=== PATIENT | female | born 1965 | race Caucasian/White ===

== ENCOUNTER → 2016-03-28 | Outpatient (CLI) | payer OTHER ==
[~2016-03-28] MED LIST: ADVAIR DISKUS 11 DSK INH; ATIVAN1 MG PO; CHANTIX0.5 MG PO; CYMBALTA30 M1 PO; CYMBALTA60 M1 PO; LEVEMIR10 ML SC; LOPRESSOR50 M1 PO; LOPRESSOR50 MG PO; METFORMIN500 MG PO; PRAVACHOL40 MG PO; PRILOSEC20 MG PO; REMERON30 MG PO; VITAMIN D1000 IU PO; VITAMIN E100 UNI2 PO
== END | disposition home or self-care (01) ==
LOC: RAD 15:37
DX: R22.9 Localized swelling, mass and lump, unspecified (principal)

== ENCOUNTER → 2016-05-22 | Outpatient (CLI) | payer OTHER | END | disposition home or self-care (01) | LOC: MRI 05-12 11:00 | DX: M47.896 Other spondylosis, lumbar region (principal); R22.9 Localized swelling, mass and lump, unspecified ==

== ENCOUNTER → 2016-07-07 | Outpatient (CLI) | payer OTHER ==
[~2016-07-07] VITALS: Ht 152.4 cm; Wt 77.1 kg
[2016-07-07 11:31] VITALS: BP 135/85
[2016-07-07 12:33] LABS: BILIRUBIN NEGATIVE (NEGATIVE); BLOOD 1+ (NEGATIVE); CLARITY SL CLOUDY (CLEAR); COLOR YELLOW (YELLOW); GLUCOSE NEGATIVE (NEGATIVE); KETONE NEGATIVE (NEGATIVE); LEUKO ESTERASE TRACE (NEGATIVE); NITRITE NEGATIVE (NEGATIVE); PH 5.5 (5.0-9.0); PROTEIN NEGATIVE (NEGATIVE); SPECIFIC GRAVITY <= 1.005 (1.005-1.030); UROBILINOGEN 0.2 E.U./dl (0.2-1.0)
[2016-07-07 12:42] LABS: BASO # 0.1 10*3/uL (0.0-0.1); EOS # 0.3 10*3/uL (0.0-0.4); EOS % 4.3 % (1.0-4.0); HEMATOCRIT 38.4 % (37.0-47.0); LYMPH # 2.8 10*3/uL (1.3-4.4); LYMPH % 41.1 % (27.0-41.0); MEAN CELL VOLUME 86.1 fl (81.0-99.0); MEAN CORPUSCULAR HGB 29.1 pg (27.0-31.0); MEAN CORPUSCULAR HGB CONC 33.9 g/dl (33.0-37.0); MEAN PLATELET VOLUME 9.7 fl (9.6-12.3); MONO # 0.6 10*3/uL (0.1-1.0); MONO % 8.9 % (3.0-9.0); NEUT % 44.3 % (47.0-73.0); PLATELET COUNT AUTOMATED 325 10*3/uL (130-400); RED BLOOD COUNT 4.46 10*6/uL (4.10-5.10); RED CELL DISTRI WIDTH 12.7 % (0-14.5); WHITE BLOOD COUNT 6.7 10*3/uL (4.8-10.8)
[2016-07-07 12:59] LABS: BACTERIA TRACE; EPITHELIAL CELLS 15-20; RBC 0-2 rbc/hpf (0-2)
[2016-07-07 13:05] LABS: BUN 13 mg/dl (7-24); CARBON DIOXIDE 30 mmol/L (21-32); CHLORIDE 104 mmol/L (98-107); EST GLOM FILT AFRICAN AMERICAN > 60 ml/min; GLUCOSE 58 mg/dL (65-99); POTASSIUM 3.6 mmol/L (3.5-5.1); SODIUM 141 mmol/L (136-145)
== END | disposition home or self-care (01) ==
LOC: SDC 06-30 11:00 → LAB 12:00 → SDC 07-10 02:46 → EDSTATUS 07-10 11:00 → SDC 07-10 11:00
PROVIDERS: Surgery
DX: D17.1 Benign lipomatous neoplasm of skin and subcutaneous tissue of trunk (principal); Z53.8 Procedure and treatment not carried out for other reasons

== ENCOUNTER → 2016-08-14 | Outpatient (CLI) | payer OTHER ==
[~2016-08-14] MED LIST changes: +DESVENLAFAXINE50 M4 PO; +GLIPIZIDE10 M2 PO; +LANSOPRAZOLE30 MG PO; +NOVAPLUS V0.09 MG/Ac INH
== END | disposition home or self-care (01) ==
LOC: MAMMO 12:41
DX: Z12.31 Encounter for screening mammogram for malignant neoplasm of breast (principal)

== ENCOUNTER → 2016-08-15 | Outpatient (CLI) | payer OTHER ==
[2016-08-15 10:41] LABS: BILIRUBIN NEGATIVE (NEGATIVE); BLOOD NEGATIVE (NEGATIVE); CLARITY SL CLOUDY (CLEAR); COLOR YELLOW (YELLOW); GLUCOSE NEGATIVE (NEGATIVE); KETONE NEGATIVE (NEGATIVE); LEUKO ESTERASE TRACE (NEGATIVE); NITRITE NEGATIVE (NEGATIVE); PH 5.5 (5.0-9.0); PROTEIN NEGATIVE (NEGATIVE); UROBILINOGEN 0.2 E.U./dl (0.2-1.0)
[2016-08-15 10:44] LABS: BASO # 0.1 10*3/uL (0.0-0.1); BASO % 0.9 % (0.0-1.0); EOS # 0.3 10*3/uL (0.0-0.4); EOS % 4.1 % (1.0-4.0); HEMATOCRIT 38.1 % (37.0-47.0); HEMOGLOBIN 12.7 g/dl (12.0-16.0); IG # 0.1 10*3/uL (0.0-0.1); LYMPH # 2.4 10*3/uL (1.3-4.4); LYMPH % 29.6 % (27.0-41.0); MEAN CELL VOLUME 85.4 fl (81.0-99.0); MEAN CORPUSCULAR HGB 28.5 pg (27.0-31.0); MEAN CORPUSCULAR HGB CONC 33.3 g/dl (33.0-37.0); MEAN PLATELET VOLUME 9.7 fl (9.6-12.3); MONO # 0.8 10*3/uL (0.1-1.0); MONO % 10.6 % (3.0-9.0); NEUT # 4.3 10*3/uL (2.3-7.9); NEUT % 54.2 % (47.0-73.0); PLATELET COUNT AUTOMATED 361 10*3/uL (130-400); RED BLOOD COUNT 4.46 10*6/uL (4.10-5.10); RED CELL DISTRI WIDTH 12.7 % (0-14.5)
[2016-08-15 10:59] LABS: BACTERIA TRACE; MUCOUS TRACE
[2016-08-15 11:04] LABS: BUN 10 mg/dl (7-24); CARBON DIOXIDE 28 mmol/L (21-32); CHLORIDE 104 mmol/L (98-107); EST GLOM FILT AFRICAN AMERICAN > 60 ml/min; GLUCOSE 130 mg/dL (65-99); POTASSIUM 4.1 mmol/L (3.5-5.1); SODIUM 143 mmol/L (136-145)
== END | disposition home or self-care (01) ==
LOC: LAB 09:36
PROVIDERS: Surgery
DX: D17.1 Benign lipomatous neoplasm of skin and subcutaneous tissue of trunk (principal)

== ENCOUNTER → 2016-08-21 | Day surgery (SDC) | payer OTHER ==
[~2016-08-21] VITALS: Ht 160 cm; Wt 74.8 kg
[~2016-08-21] MED LIST changes: +HYDROCODONE BIT1 T11 PO
--- NOTE | ~2016-08-21 | O ---
[place], [place] OPERATIVE NOTE [id number] UN[facility] #: [id number] ROOM: DOCTOR: AUGIE OLIVAREZ MD BIRTHDATE: [birth year] DOS: 08/21/2016 PREOPERATIVE DIAGNOSIS: Left lower back lipoma. POSTOPERATIVE DIAGNOSIS: Left lower back lipoma. PROCEDURE: Excision of left lower back lipoma. SURGEON: Augie Olivarez M.D. LOG STACKER OPERATOR: MS3. ANESTHESIA: MAC. INDICATIONS: This is a 51-year-old lady with symptomatic left lower back lipoma, who is here for the above-mentioned procedure. The procedure and its complications were explained to the patient in detail. Complications that were discussed included but were not limited to bleeding, infection, hematoma/seroma/abscess formation and prolonged pain. He agreed to proceed. DESCRIPTION OF PROCEDURE: After identifying the patient, the patient was brought to the operating suite and placed in a right lateral position. After IV sedation was administered, the parts were painted and draped in the usual sterile fashion and a time-out procedure was called. An incision was marked and local anesthesia (1% plain lidocaine) was infiltrated in the line of the incision and skin incision was made. It was deepened in layers and the lipoma was identified. It was excised and dissected away from surrounding structures with the help of electrocautery. Size of this lipoma was approximately 1 x 1 x 1 cm. It was sent for histopathological diagnosis. Thereafter, hemostasis was confirmed and saline was used for irrigation. The subcutaneous tissue was then approximated with the help of 3-0 Vicryl in an interrupted fashion and the skin edges were approximated with the help of 4-0 Vicryl in a subcuticular running fashion. Dressing was placed. The patient tolerated the procedure well and was brought back to the recovery room in stable fashion. There were no complications. Dr. Augie Olivarez, the attending surgeon, was present throughout the operating case. [place], [place] OPERATIVE NOTE NAME: ALEJANDRINA HANKSTERELL Venegas UNIT #: [id number] ROOM: DOCTOR: AUGIE OLIVAREZ MD BIRTHDATE: [birth year] Augie Olivarez MD CM:OPRECORD:OPERATIVE NOTE [id number] AUGIE OLIVAREZ MD 08/22/16 0136 interface
[2016-08-21 06:35] VITALS: BP 157/95
[2016-08-21 07:50] VITALS: BP 141/72
[2016-08-21 08:02] VITALS: BP 142/79
[2016-08-21 08:20] VITALS: BP 135/76
== END | disposition home or self-care (01) ==
LOC: SDC 08-15 09:30
DX: D17.1 Benign lipomatous neoplasm of skin and subcutaneous tissue of trunk (principal); I10 Essential (primary) hypertension; J45.909 Unspecified asthma, uncomplicated; Z87.01 Personal history of pneumonia (recurrent); E11.9 Type 2 diabetes mellitus without complications; K76.0 Fatty (change of) liver, not elsewhere classified; K21.9 Gastro-esophageal reflux disease without esophagitis; Z87.891 Personal history of nicotine dependence; E78.5 Hyperlipidemia, unspecified; Z79.899 Other long term (current) drug therapy; Z98.890 Other specified postprocedural states; M19.90 Unspecified osteoarthritis, unspecified site; F32.9 Major depressive disorder, single episode, unspecified; E66.9 Obesity, unspecified; Z88.8 Allergy status to other drugs, medicaments and biological substances

== ENCOUNTER 2016-10-21 | Emergency (ER) | payer OTHER ==
[~2016-10-21] VITALS: Ht 165.1 cm; Wt 93.0 kg
[~2016-10-21] MED LIST changes: +CENTRUM COMPLE1 EACH PO
[2016-10-21 00:45] LABS: BASO % 0.6 % (0.0-1.0); EOS % 0.6 % (1.0-4.0); HEMATOCRIT 37.8 % (37.0-47.0); HEMOGLOBIN 12.4 g/dl (12.0-16.0); LYMPH # 1.7 10*3/uL (1.3-4.4); LYMPH % 25.9 % (27.0-41.0); MEAN CELL VOLUME 84.8 fl (81.0-99.0); MEAN CORPUSCULAR HGB 27.8 pg (27.0-31.0); MEAN CORPUSCULAR HGB CONC 32.8 g/dl (33.0-37.0); MEAN PLATELET VOLUME 9.2 fl (9.6-12.3); MONO # 0.5 10*3/uL (0.1-1.0); MONO % 7.6 % (3.0-9.0); NEUT # 4.2 10*3/uL (2.3-7.9); PLATELET COUNT AUTOMATED 314 10*3/uL (130-400); RED BLOOD COUNT 4.46 10*6/uL (4.10-5.10); RED CELL DISTRI WIDTH 13.4 % (0-14.5); WHITE BLOOD COUNT 6.5 10*3/uL (4.8-10.8)
[2016-10-21 01:02] LABS: ALBUMIN 4.3 gm/dl (3.1-4.5); ALKALINE PHOSPHATASE 84 U/L (45-117); BILIRUBIN, TOTAL 0.2 mg/dl (0.2-1.0); BUN 9 mg/dl (7-24); CARBON DIOXIDE 26 mmol/L (21-32); CHLORIDE 105 mmol/L (98-107); EST GLOM FILT AFRICAN AMERICAN > 60 ml/min; GLUCOSE 146 mg/dL (65-99); POTASSIUM 4.1 mmol/L (3.5-5.1); SGOT/AST 46 IU/L (3-35); SGPT/ALT 41 U/L (12-78); SODIUM 139 mmol/L (136-145); TOTAL PROTEIN 7.7 gm/dL (6.4-8.2)
[2016-10-21 01:31] LABS: BILIRUBIN NEGATIVE (NEGATIVE); BLOOD NEGATIVE (NEGATIVE); CLARITY SL CLOUDY (CLEAR); COLOR YELLOW (YELLOW); GLUCOSE NEGATIVE (NEGATIVE); KETONE TRACE (NEGATIVE); LEUKO ESTERASE NEGATIVE (NEGATIVE); NITRITE NEGATIVE (NEGATIVE); PROTEIN 2+ (NEGATIVE); SPECIFIC GRAVITY >= 1.030 (1.005-1.030)
[2016-10-21 01:39] LABS: CALCIUM OXALATE CRYSTALS 2+; URINE AMPHETAMINES < 1000 (1000ng/ml); URINE BARBITURATES < 200 (200ng/ml); URINE COCAINE < 300 (300ng/ml)
[2016-10-21 01:41] LABS: URINE REFLEX COMMENT NO (NO)
[2016-10-21 06:03] VITALS: BP 134/81
== END 2016-10-21 09:52 | disposition short-term general hospital (02) ==
LOC: ED
PROVIDERS: Emergency Medicine Emergency Medical Services
DX: F31.9 Bipolar disorder, unspecified (principal); F23 Brief psychotic disorder; F41.9 Anxiety disorder, unspecified; Z79.899 Other long term (current) drug therapy; Z88.8 Allergy status to other drugs, medicaments and biological substances

== ENCOUNTER → 2017-05-04 | Outpatient (CLI) | payer OTHER | END | disposition home or self-care (01) | LOC: RAD 13:48 | DX: M25.532 Pain in left wrist (principal) ==

== ENCOUNTER 2019-08-15 15:56 | Inpatient (IN) | payer OTHER ==
[~2019-08-15] VITALS: Ht 160 cm; Wt 75.7 kg
[~2019-08-15 15:56] MED LIST changes: -LEVEMIR10 ML SC; +LEVEMIR100 UNIT/1 SC; -NOVAPLUS V0.09 MG/Ac INH; +PROVENTIL HFA6.7 GM INH
[2019-08-15 15:58] VITALS: BP 139/94
[2019-08-15 17:08] LABS: BASO # 0.1 10*3/uL (0.0-0.1); BASO % 0.8 % (0.0-1.0); EOS # 0.1 10*3/uL (0.0-0.4); EOS % 1.6 % (1.0-4.0); HEMATOCRIT 38.6 % (37.0-47.0); LYMPH # 3.2 10*3/uL (1.3-4.4); LYMPH % 36.3 % (27.0-41.0); MEAN CELL VOLUME 87.3 fl (81.0-99.0); MEAN CORPUSCULAR HGB 28.3 pg (27.0-31.0); MEAN CORPUSCULAR HGB CONC 32.4 g/dl (33.0-37.0); MEAN PLATELET VOLUME 8.9 fl (9.6-12.3); MONO # 0.9 10*3/uL (0.1-1.0); MONO % 10.8 % (3.0-9.0); NEUT # 4.3 10*3/uL (2.3-7.9); NEUT % 49.8 % (47.0-73.0); PLATELET COUNT AUTOMATED 438 10*3/uL (130-400); RED BLOOD COUNT 4.42 10*6/uL (4.10-5.10); RED CELL DISTRI WIDTH 13.4 % (0-14.5); WHITE BLOOD COUNT 8.7 10*3/uL (4.8-10.8)
[2019-08-15 17:19] LABS: ACT PARTIAL THROMBO TIME 25.7 SECONDS (20.0-32.1); INTERNATIONAL NORM RATIO 0.9 (2.0-3.5)
[2019-08-15 17:25] LABS: BILIRUBIN NEGATIVE (NEGATIVE); BLOOD NEGATIVE (NEGATIVE); CLARITY CLEAR (CLEAR); COLOR YELLOW (YELLOW); GLUCOSE NEGATIVE (NEGATIVE); KETONE NEGATIVE (NEGATIVE); SPECIFIC GRAVITY 1.005 (1.005-1.030)
[2019-08-15 17:25] LABS: ALBUMIN 4.3 gm/dl (3.1-4.5); ALKALINE PHOSPHATASE 70 U/L (45-117); BUN 8 mg/dl (7-24); CHLORIDE 105 mmol/L (98-107); CREATININE 0.73 mg/dL (0.55-1.02); LIPASE 344 U/L (73-393); POTASSIUM 3.9 mmol/L (3.5-5.1); SGOT/AST 7 IU/L (3-35); SGPT/ALT 22 U/L (12-78); SODIUM 135 mmol/L (136-145); TOTAL PROTEIN 7.8 gm/dL (6.4-8.2)
[2019-08-15 17:26] LABS: BACTERIA TRACE; LEUKO ESTERASE NEGATIVE (NEGATIVE); NITRITE NEGATIVE (NEGATIVE); UROBILINOGEN 0.2 E.U./dl (0.2-1.0)
[2019-08-15 17:27] LABS: TROPONIN I < 0.015 ng/ml (<0.045)
[2019-08-15 17:44] LABS: URINE AMPHETAMINES < 1000 (1000ng/ml); URINE BARBITURATES < 200 (200ng/ml); URINE BENZODIAZEPINES < 200 (200ng/ml); URINE CANNABINOIDS (THC) < 50 (50ng/ml); URINE COCAINE < 300 (300ng/ml); URINE METHADONE < 300 (300ng/ml); URINE OPIATES < 300 (300ng/ml)
[2019-08-15 18:04] LABS: URINE PHENCYCLIDINE < 25 (25ng/ml)
--- NOTE | 2019-08-15 19:14 | NUR ---
JACLYN ROYAL BACK UP SCAN COORDINATOR CALLED FOR INFORMATION ON PATIENT.
--- NOTE | 2019-08-15 19:28 | NUR ---
[facility] CALLED AND PT WILLING TO BE ADMITTED TO [facility].
[2019-08-15 21:12] VITALS: BP 123/76
--- NOTE | 2019-08-15 21:12 | NUR ---
AZIZA HANKS a 54 year old F admitted via wheel chair from the EMERGENCY ROOM as a voluntary admission. Arrived on unit at 2111. ALLERGIES: BUSPIRONE. Vital signs are: 97.3-88-18 123/76 SPO2 100%RA. The client signed the following forms with stated understanding: Authorization For The Release of Medical Information, Clothing List, Consent to Voluntary Admission and Hospitalization, Consent and Release Forms/Receipt of Rights, Acknowledgement of Advance Directive Information, Behavioral Health Consent Form, and Informed Consent of Medications. Admitted under the services of Dr. CORAL HENDERSON,[facility]. A search was conducted and hazardous articles were removed. Client was oriented to the unit. TD BARRAGAN
[2019-08-15] MEDS ORDERED: ASPIRIN CHEWABL81 MG PO (21:38)
[2019-08-15] MEDS ORDERED: ESCITALOPRAM OX20 MG PO (21:39)
[2019-08-15] MEDS ORDERED: LORATADINE-D 11 EACH PO (21:40)
[2019-08-15] MEDS ORDERED: MONTELUKAST SOD10 MG PO (21:40)
[2019-08-15] MEDS ORDERED: LISINOPRIL2.5 MG PO (21:41)
--- NOTE | 2019-08-15 21:45 | NUR ---
DR. WALKER MADE AWARE OF CONSULT FOR MEDICAL MANAGEMENT. HOME MEDS REVIEWED AND CONTINUED PER ORDERS. DR. WALKER ALSO MADE AWARE OF CRITICAL LACTIC ACID LEVEL 4.0. N.O. RECEIVED AND FOLLOWS: LABS FOR AM: HgBAIC, CMP, CBC WITH DIFF, TSH, B12, LACTIC ACID. ACCUCHECKS ACHS, SLIDING SCALE 1, ADA 2000 CALORIE DIET. START NS@60CC/HR. NO STOP DATE. LOVENOX 40MG SUBCUT DAILY DR. WALKER STATES HE WILL BE ON UNIT TOMORROW TO ASSESS PATIENT.
--- NOTE | 2019-08-15 22:06 | NUR ---
JACLYN PAIGE MADE AWARE OF PATIENT'S ADMISSION AND VOLUNTARY STATUS PER HER REQUEST.
--- NOTE | 2019-08-16 00:23 | NUR ---
24 GAUGE PLACED TO RIGHT AC, PLACED UNDER STERILE TECHNIQUE. SALINE LOCK ATTACHED, FLUSHED WITHOUT DIFFICULTY, PATIENT TOLERATED WELL.
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
--- NOTE | 2019-08-16 04:35 | NUR ---
NO FURTHER COMPLAINTS OF PAIN AND/OR ANXIETY NOTED, PT RESTING QUIETLY WITH EYES CLOSED. NO DISTRESS NOTED. PRN TYLENOL AND PRN ATIVAN EFFECTIVE AT THIS TIME.
--- NOTE | 2019-08-16 05:50 | NUR ---
PATIENT OBSERVED ON Q 15 MIN CHECKS TO HAVE SLEPT APPROX 3 HOURS UNINTERRUPTED. NO DISTRESS NOTED.
[2019-08-16 06:08] LABS: BASO # 0.1 10*3/uL (0.0-0.1); BASO % 0.8 % (0.0-1.0); EOS # 0.1 10*3/uL (0.0-0.4); EOS % 1.7 % (1.0-4.0); HEMATOCRIT 36.9 % (37.0-47.0); LYMPH # 2.8 10*3/uL (1.3-4.4); LYMPH % 41.8 % (27.0-41.0); MEAN CELL VOLUME 87.9 fl (81.0-99.0); MEAN CORPUSCULAR HGB 28.3 pg (27.0-31.0); MEAN CORPUSCULAR HGB CONC 32.2 g/dl (33.0-37.0); MEAN PLATELET VOLUME 9.1 fl (9.6-12.3); MONO # 0.7 10*3/uL (0.1-1.0); NEUT % 45.2 % (47.0-73.0); PLATELET COUNT AUTOMATED 381 10*3/uL (130-400); RED CELL DISTRI WIDTH 13.6 % (0-14.5); WHITE BLOOD COUNT 6.6 10*3/uL (4.8-10.8)
[2019-08-16 06:39] LABS: ALBUMIN 3.9 gm/dl (3.1-4.5); BUN 8 mg/dl (7-24); CHLORIDE 108 mmol/L (98-107); POTASSIUM 3.4 mmol/L (3.5-5.1); SGOT/AST 11 IU/L (3-35); SODIUM 139 mmol/L (136-145); TOTAL PROTEIN 7.1 gm/dL (6.4-8.2)
[2019-08-16 06:51] LABS: ALKALINE PHOSPHATASE 56 U/L (45-117); CHOLESTEROL 224 mg/dL (<200); CREATININE 0.76 mg/dL (0.55-1.02); HDL CHOLESTEROL 39 mg/dl (40-60); LDL CHOLESTEROL 122 mg/dL (9-159); SGPT/ALT 18 U/L (12-78); TRIGLYCERIDES 315 mg/dl (<150); VLDL CHOLESTEROL 63 mg/dL (6-40)
[2019-08-16 07:45] VITALS: BP 143/84
--- NOTE | 2019-08-16 07:54 | NUR ---
Patient eating breakfast in dining room with peers. Respirations easy and regular. Vital signs stable. No overt distress. ROSA HERNANDEZ
[2019-08-16 07:58] LABS: VITAMIN D, 25-HYDROXY 24.4 ng/mL (30-100)
--- NOTE | 2019-08-16 08:29 | NUR ---
SPEECH PATHOLOGY Nursing screen completed. There is no indication for speech pathology services at this time. This dept. will be available if future needs arise. ANTHONY MAGAÑA MS [facility]-ARTIST AGENT
--- NOTE | 2019-08-16 08:30 | NUR ---
Treatment Plan meeting was held with MAGNUS Marti, RN, AT, SUPERVISOR FRAME SAMPLE AND PATTERN-S and Speech Therapist Technician. Plan for discharge Next week. Pt. arrived to [facility] from Home and will return home at discharge.
--- NOTE | 2019-08-16 10:02 | NUR ---
on unit to see pt at this time, working with . Update given. Reviewed labs re: lactic acid/baseline. states ok to d/c IV fluids at this time. Witnessed by 2nd RN [email or web address].SEAN.
--- NOTE | 2019-08-16 10:33 | NUR ---
TELEHEALTH COMPLETED WITH DR MONCADA, NEW ORDERS RECEIVED.
--- NOTE | 2019-08-16 11:02 | NUR ---
Spoke with re: duplicate orders recieved for a second dose of Kdur 40mEq, TSH and B12 lab draws. Made aware pt already recieved a one time dose of Kdur 40mEq at 1012 this AM. Also made aware TSH and B12 levels were drawn this AM, results reviewed. states to cancel second dose of Kdur, cancel duplicate labs.
--- NOTE | 2019-08-16 11:16 | NUR ---
Pt given PRN Tylenol 650mg PO at this time per pt request for c/o right knee pain rated level 7/10, will monitor for effectiveness.
--- NOTE | 2019-08-16 11:27 | NUR ---
and residents on unit to see pt at this time.
--- NOTE | 2019-08-16 11:40 | NUR ---
[facility] per request of . Pt signed release of information allowing this RN to contact [facility] for information. Per Jaqueline RN, since 2012 pt has been prescribed Abilify, Remeron, Cymbalta, Pristiq. Most recently pt has been prescribed Ativan, Remeron and Lexapro. No antipsychotics since the Abilify in 2012. Jaqueline states pt had been on Klonopin but this was changed to Ativan in Apr 2018.
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
--- NOTE | 2019-08-16 11:56 | NUR ---
Contacted per pt request, pt requests orders for Saline nose spray for dry sinuses and Icy hot/Bengay for knee pain. states she will enter new orders.
[2019-08-16 12:07] LABS: RETICULOCYTE % 1.5 % (0.50-2.50)
[2019-08-16 12:35] LABS: IRON 55 ug/dL (50-170); TOTAL IRON BINDING CAPACITY 418 ug/dl (250-450)
--- NOTE | 2019-08-16 12:53 | NUR ---
INITIAL CLINICAL REVIEW FAXED TO [facility].
--- NOTE | 2019-08-16 15:09 | NUR ---
P- Pleasant demeanor, involuntary movements noted to face, eyes, mouth/tongue and BUE. Hyperverbal at times, one outburst of bizarre behavior in hallway. I- Orientation, mood and behaviors assessed. Assessed pt for SI/HI, hallucinations, paranoia and/or delusions. Medications administered as per physician's orders. Assistance with ADL care provided as needed. Encouraged pt to attend and participate in torrez milieu groups and activities. R- Pt is alert and oriented x4. Memory appears to be intact. Resps easy and even on room air. Mood appears stable, affect animated at times. Pt denies feeling sad, depressed, anxious or hopeless. Pt reports she wound up in the hospital due to "stressful situations at my apartment". Pt denies SI/HI, intent or plan. Pt denies hallucinations, paranoia and/or delusions. Pt noted with constant movements to face, eyes, mouth/tongue and BUE. is aware. Pt states "I've seen that commercial on TV for tardive dyskinesia and I think, 'wow! that's me'. Sometimes I don't even realize I'm doing it until I go the bathroom and see myself in the mirror when I wash my hands and I think to myself, I look like one of those fish I used to have as a kid". Pt hyperverbal at times. Pt complains frequently of right knee pain. Given Tylenol per orders. contacted re: pt's request for extra strength Tylenol, states she will look into it tomorrow. Pt had one outburts in the hallway this afternoon, pt standing in doorway to quiet room across from nurse's station and began yelling "1026! 1026! 1026! Football! Nayak-macias!". Pt then laughed and walked down the hallway. Pt otherwise very pleasant and cooperative, interacts appropriately with staff and peers. No distress noted. P- Plan to continue current treatment, continue to monitor mood and behaviors, provide appropriate reorientation, redirection and 1:1 as needed. Continue to encourage medication compliance as well as group attendance and participation.
--- NOTE | 2019-08-16 15:48 | NUR ---
GROUP B PT ATTENDED GROUP THERAPY AND PARTICIPATED BY COLORING AND LISTENING TO MUSIC. PT WAS QUIET AND ON TASK. PT EXHIBITED NO ADVERSE BEHAVIORS WHILE IN GROUP.
--- NOTE | 2019-08-16 17:31 | NUR ---
PRN Tylenol 650mg PO given at this time per pt request for c/o right knee pain. WIll monitor for effect.
--- NOTE | 2019-08-16 18:47 | NUR ---
Tylenol appears effective. No further complaints voiced at this time.
[2019-08-16 19:57] VITALS: BP 152/86
--- NOTE | 2019-08-16 20:10 | NUR ---
24 HR chart check completed.
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
--- NOTE | 2019-08-17 05:33 | NUR ---
PT SLEPT PAST 2215 WITH INTERMITTENT AWAKENINGS THROUGHOUT THE NIGHT. SLEPT APPX 3 1/2 HOURS
--- NOTE | 2019-08-17 05:35 | NUR ---
PT WAS UP TO THE BATHROOM X 4
--- NOTE | 2019-08-17 06:53 | NUR ---
AM BEDSIDE GLUCOSE 106
--- NOTE | 2019-08-17 07:42 | NUR ---
Patient eating breakfast in dining room with peers. Feeding self. Respirations easy and regular. Vital signs stable. No overt distress. ROSA HERNANDEZ PMCONSTANCE-CARLOS on unit to see pt at this time, update given.
[2019-08-17 07:49] VITALS: BP 135/84
--- NOTE | 2019-08-17 08:30 | NUR ---
Treatment Plan meeting was held this a.m. with Dr. Garcia via telephone, MAGNUS Marti RN, AT, MANUFACTURING SOFTWARE ENGINEER-S and Career Services Coordinator in attendance. Plan for discharge Next week with return home.
[2019-08-17 09:42] LABS: BUN 8 mg/dl (7-24); CHLORIDE 111 mmol/L (98-107); CREATININE 0.83 mg/dL (0.55-1.02); POTASSIUM 3.8 mmol/L (3.5-5.1); SODIUM 137 mmol/L (136-145)
--- NOTE | 2019-08-17 11:39 | NUR ---
AM GROUP PT ATTENDED MORNING GROUP THERAPY AND PARTICIPATED IN ALL ACITIVITES. PT EXHIBITED NO ADVERSE BEHAVIORS WHILE IN GROUP.
--- NOTE | 2019-08-17 12:05 | NUR ---
PRN Tylenol ES 1000mg PO given at this time per pt request for c/o right knee pain rated level 7/10. Will monitor for effect.
--- NOTE | 2019-08-17 13:37 | NUR ---
GROUP A/COPING SKILLS PT ATTENDED GROUP THERAPY AND PARTICIPATED FULLY IN THE GROUP DISCUSSION. PT HAD GOOD INSIGHT AND CONTRIBUTED TO THE CONVERSATION. PT EXPRESSED NO AGITATION OR ANXIETY DURING GROUP.
--- NOTE | 2019-08-17 13:40 | NUR ---
Tylenol moderately effective. Pt requesting Lidoderm patch. Lidoderm patch was ordered by MD today but scheduled to start tomorrow morning. Call placed to . states OK for this RN to reschedule Lidoderm patch to start now.
--- NOTE | 2019-08-17 15:53 | NUR ---
GROUP B/CRAFTS PT ATTENDED GROUP THERAPY AND PARTICIPATED IN ALL ACTIVITIES. PT WAS FOCUSED AND ENJOYED SINGING ALONG WITH THE MUSIC. PT EXHIBITED NO ADVERSE BEHAVIORS WHILE IN GROUP
--- NOTE | 2019-08-17 18:04 | NUR ---
No adverse moods or behaviors this shift. Pt is alert and oriented x4. Memory intact. Resps easy and even on room air. Speech is coherent, able to make needs known without difficulty. Involuntary facial movements continue. Pt denies feeling sad, depressed, anxious or hopeless. Pt denies SI/HI, intent or plan. Pt denies hallucinations, paranoia and/or delusions. No evidence of sensory disturbances noted. Pt is medication compliant without difficulty. Pt is pleasant, calm and cooperative. No distress noted. Plan to continue current treatment.
[2019-08-17 20:00] VITALS: BP 138/88
--- NOTE | 2019-08-17 20:17 | NUR ---
24 HR chart check completed.
--- NOTE | 2019-08-17 21:12 | NUR ---
P-HYPERVERBAL I-PROVIDE EMOTIONAL SUPPORT, ADMINISTER MEDS, MONITOR SLEEP R-ALERT & ORIENTED X 4. STATED SHE IS FEELING "GOOD, GOOD". SAT IN THE DINING ROOM WATCHING TV. STABLE & PLEASANT. NO PHYSICAL COMPLAINTS VOICED. AT SNACK COMPLIANT WITH MEDS. NO DELUSIONS. NO SENSORY DISTURBANCE. CONTINUES TO HAVE INVOLUNTARY FACIAL & NECK MOVEMENTS. RANDOMLY SHOUTS OUT WORDS. P-CONTINUE TO MONITOR
--- NOTE | 2019-08-18 05:42 | NUR ---
PT SLEPT PAST 2300 OF BROKEN SLEEP & BEING AWAKE FOR AN HOUR & A HALF. SLEPT APPX 5 1/2 HOURS
--- NOTE | 2019-08-18 06:46 | NUR ---
AM BEDSIDE GLUCOSE 121
[2019-08-18 07:59] VITALS: BP 123/79
--- NOTE | 2019-08-18 08:20 | NUR ---
Dr. Smallwood on floor to assess patient. Update provided.
--- NOTE | 2019-08-18 09:00 | NUR ---
Treatment Plan meeting was held this a.m. via telephone with Dr. Garcia, RN, AT, PAPER STRIPPER-S and Computational Mathematician. Plan for discharge Next week. Pt. will return Home at discharge.
--- NOTE | 2019-08-18 11:07 | NUR ---
Patient c/o left knee pain rating 7 out of 10 that is aching. Patient requesting and received at this time PRN PO tylenol per order. Will continue to monitor patient for effectiveness.
--- NOTE | 2019-08-18 11:39 | NUR ---
Shift chart check completed.
--- NOTE | 2019-08-18 11:51 | NUR ---
AM GROUP/RELAXATION PT ATTENDED MORNING GROUP THERAPY AND PARTICIPATED BY JOINING THE GROUP DISCUSSION. PT HAS GOOD INSIGHT AND CONTRIBUTED TO THE CONVERSATION. PT EXHIBITED NO ADVERSE BEHAVIORS WHILE IN GROUP
--- NOTE | 2019-08-18 12:07 | NUR ---
Patient states that the PRN Tylenol was effective. No further voiced complaints at this time. Will continue to monitor.
--- NOTE | 2019-08-18 13:05 | NUR ---
No adverse moods or behaviors noted this shift. Alert and oriented x3. Mood stable and pleasant with interaction. Denies SI/HI, hallucinations, or delusions. No s/s of interacting with intrernal stimuli. No paraoinoid or delusional thought process noted. No s/s of distress noted; resps even and unlabored on room air. Involuntary neck and facial movements remain. Attending and participating in group therapy. Eating and drinking adequately. Makes needs known. Pt states that she has left knee pain, brace is intact; see other documentation and EMAR for further detail on PRN given. Ambulates with a steady gait. Q15 minute checks maintained for safety. Patient continues to refuse skin assessment.
--- NOTE | 2019-08-18 13:29 | NUR ---
GROUP A/MABLE PT ATTENDED GROUP THERAPY AND PARTICIPATED IN ALL ACITIVITIES. PT EXHIBITED NO ANXIETY OR AGITATION WHILE IN GROUP. PT WAS FOCUSED AND SOCIALBLE.
--- NOTE | 2019-08-18 15:44 | NUR ---
GROUP B PT ATTENDED AFTERNOON GROUP THERAPY AND PARTICIPATED IN ALL ACTIVITIES. PT WAS JOVIAL, FOCUSED AND HELPFUL TO OTHER PEERS. PT EXHIBITED NO ADVERSE BEHAVIORS WHILE IN GROUP
--- NOTE | 2019-08-18 19:40 | NUR ---
24 HR chart check completed.
[2019-08-18 20:00] VITALS: BP 128/74
--- NOTE | 2019-08-18 22:33 | NUR ---
P-HYPERVERBAL, ANIMATED I-PROVIDE EMOTIONAL SUPPORT, ADMINISTER MEDS, MONITOR SLEEP R-ALERT & ORIENTED X 4. SPOKE WITH HERE SISTER CLIFF ON THE PHONE & STATED IT WAS A GOOD PHONE CALL. SAT IN THE DINING ROOM WATCHING TV & WAS VERY ANIMATED AT TIMES WITH LOUD LAUGHTER. STABLE & PLEASANT.ATE SNACK. COMPLIANT WITH MEDS. NO DELUSIONS. NO SENSORY DISTURBANCE. CONTINUES TO HAVE INVOLUNTARY FACIAL & NECK MOVEMENTS. RANDOMLY SHOUTS OUT WORDS. REQUESTED & MEDICATED WITH PRN TYLENOL EXTRA STRENGTH FOR C/O RIGHT LEG PAIN. RATED 7/10. P-CONTINUE TO MONITOR
--- NOTE | 2019-08-19 05:54 | NUR ---
PT SLEPT APPROX 2 1/2 HOURS OF BROKEN SLEEP
--- NOTE | 2019-08-19 06:22 | NUR ---
AM BEDSIDE GLUCOSE 112
[2019-08-19 08:00] VITALS: BP 126/72
--- NOTE | 2019-08-19 09:00 | NUR ---
Treatment Plan meeting was held this a.m. with MAGNUS Marti, RN, AT, HISTOLOGY AIDE-S and Production Aide. Plan for discharge Next Week. Pt. will retur home at discharge.
--- NOTE | 2019-08-19 10:11 | NUR ---
PRN Tylenol ES 1000mg PO given at this time per pt request for c/o right knee pain rated level "6 and a half" out of 10. Will monitor for effect.
--- NOTE | 2019-08-19 11:30 | NUR ---
Pt states Tylenol effective in easing pain. Rates pain a 4/10 at this time.
--- NOTE | 2019-08-19 11:44 | NUR ---
AM GROUP PT ATTENDED MORNING GROUP THERAPY AND PARTICIPATED IN ALL ACITIVITIES.PT EXHIBITED NO ADVERSE BEHAVIORS WHILE IN GROUP.
--- NOTE | 2019-08-19 13:42 | NUR ---
GROUP B PT WAS PRESENT FOR GROUP THERAPY AND PARTICIPATED IN ALL ACITIVITIES. PT WAS HYPERVERBAL THE ENTIRE TIME. PT EXHIBITED NO ADVERSE BEHAVIORS WHILE IN GROUP.
--- NOTE | 2019-08-19 14:45 | NUR ---
Pt has been hyperverbal today and intrusive toward other pts. Pt was pleasant and appropriate in content during conversation with this administrative underwriter.
--- NOTE | 2019-08-19 15:05 | NUR ---
P- Hyperverbal, intrusive with other peer/staff interactions, animated affect noted at times, pt c/o increased anxiety and difficulty sleeping in the evening hours. I- Orientation, mood and behaviors assessed. Assessed pt for SI/HI, hallucinations, paranoia and/or delusions. Medications administered as per physician's orders. Medication education provided. Encouraged pt to attend and participate in torrez milieu groups and activities. R- Pt is alert and oriented x4. Memory intact. Resps easy and even on room air. Mood stable, affect animated at times. Pt is hyperverbal. Intrusive into other staff and peer interactions. Pt denies feeling sad or depressed. Pt reports feeling anxious at night which leads to poor sleep. Discussed new order for Ambien at HS to aide with sleep. Pt states "How many miligrams?" Advised pt ordered Ambien 5mg for tonight. Pt states "OK. Well if that doesn't work then they can go to 10mg and 10mg ALWAYS works!" Pt denies SI/HI, intent or plan. Pt denies hallucinations, no response to internal stimuli noted. No paranoia or delusions noted. Decreased involuntary movements noted to face/lips and BUE. Pt states "Yeah! It's much better. I don't look like a fish in a fish tank anymore!" Pt is medication compliant without difficulty. No aggressive behaviors. Independent with ADL care. No distress noted. P- Plan to continue current treatment, continue to monitor mood and behaviors, provide appropriate reorientation, redirection and 1:1 as needed. Continue to encourage medication compliance as well as group attendance and participation.
--- NOTE | 2019-08-19 15:35 | NUR ---
Shift chart check completed.
--- NOTE | 2019-08-19 15:48 | NUR ---
GROUP B / BETZAIDA PT ATTENDED GROUP THERAPY AND PLAYED ByteShieldTZEE. PT TALKED NONSTOP THE ENTIRE TIME AND NO ONE COULD GET A WORD IN EDGEWISE. EVEN WHEN ASKED TO PAUSE SO THAT SOMEONE ELSE COULD SPEAK, PT WAS UNABLE TO DO SO.
[2019-08-19 20:00] VITALS: BP 156/79
--- NOTE | 2019-08-19 20:50 | NUR ---
Medicated with Tylenol po prn as per doctor's order for c/o pain in rt knee rating 09/15. Will monitor effectiveness.
--- NOTE | 2019-08-19 22:26 | NUR ---
Patient alert and oriented x4. No memory deficits noted. Mood calm,cooperative and slightly hyperverbal at times but easily redirected. Patient intrusive with other patients' care. Occasional involuntary facial movements noted. Patient denies SI,delusions or hallucinations. No s/s of any responding to internal stimuli noted at this time. Patient compliant with HS medications without any difficulty. Provided emotional support. Redirected when needed and patient receptive. Plan to continue to encourage medication compliance. Also continue to offer emotional support and redirect when needed/appropriate. Will continue to monitor moods/behaviors. Q 15 minute safety checks continued and maintained. See [facility] flowsheet for further documentation.
--- NOTE | 2019-08-20 00:12 | NUR ---
24 HR chart check completed.
--- NOTE | 2019-08-20 05:05 | NUR ---
Patient slept approx. 1.5 hours throughout shift. Q 15 minute safety checks continued and maintained.
[2019-08-20 07:53] VITALS: BP 132/81
--- NOTE | 2019-08-20 09:44 | NUR ---
PATIENT C/O ACHING RIGHT KNEE PAIN RATING 8 OUT OF 10. REQUESTING AND RECEIVED AT THIS TIME PRN PO TYLENOL. WILL CONTINUE TO MONITOR FOR EFFECTIVENESS.
--- NOTE | 2019-08-20 10:44 | NUR ---
PT STATES PRN TYLENOL WAS EFFECTIVE. NO FURTHER VOICED COMPLAINTS AT THIS TIME.
--- NOTE | 2019-08-20 17:48 | NUR ---
P- Hyperverbal. Preoccupied with medications and diabetes. Argumentative with staff and other patients. Animated noises at times. Involuntary face, neck, and hand movements present. I- Assess mood, orientation, SI/HI, hallucinations, delusions, or pain. 1:1 therapeutic interaction with emotional support and ventilation of feelings provided. Provide redirection with argumentative behavior. Encourage to utilize lower stimuli environments when upset with others. Educate and encourage to use coping techniques. Provide meds on time with education on each. Education provided on diabetic management and diet. R- Alert and oriented x3. Patient states mood is "good" in an animated voice. Denies SI/HI, hallucinations, or delusions. No s/s of interacting with internal stimuli. No s/s of delusional thought process noted. No s/s of distress ntoed; resps even and unlabored on room air. Patient states that her right knee was hurting; see other documentation for further details. Patient sitting in dining room most of the day with other patients, talking over other patients during group, and making animated noises. Pt was found verbally arguing with another patient due to her talking over the movie during group. Pt refused to leave the dining room but did stop the argument. 1:1 interaction and redirection was ineffective, pt remained mute when telling about coping skills. Pt preoccupied with medications and diabetes. Pt stated that she did not have sugar on her lunch tray to bring up her sugar; education provided on the meats, starches, and carbohydrates that were on her place; pt stated "No, I ordered a pudding for the sugar"; educated that all our food is sugar free for diabetic patients. Pt voices needs often and makes known. Intrussive with other peoples conversations. Eating and drinking adequately. Medication compliant. Ambulates with a steady gait. P- Continue with redirection, 1:1 interaction, and coping skills. Encourage to utilize low stimuli environment. Provide meds on time with education on each. Educate frequently with medications and diabetes. Q15 minute checks maitained for safety.
--- NOTE | 2019-08-20 18:08 | NUR ---
Shift chart check completed.
[2019-08-20 20:00] VITALS: BP 141/75
--- NOTE | 2019-08-20 20:59 | NUR ---
Medicated with Tylenol po prn for c/o bilat.leg pain rating 7/10. Will monitor effectiveness.
--- NOTE | 2019-08-20 22:09 | NUR ---
Patient alert and oriented x4. No memory deficits noted. Mood calm,cooperative and slightly hyperverbal at times but easily redirected. Patient intrusive with other patients' care. Occasional involuntary facial movements noted. Patient denies SI,delusions or hallucinations. No s/s of any responding to internal stimuli noted at this time. Patient compliant with HS medications without any difficulty. Provided emotional support. Redirected when needed and patient receptive. Plan to continue to encourage medication compliance. Also continue to offer emotional support and redirect when needed/appropriate. Will continue to monitor moods/behaviors. Q 15 minute safety checks continued and maintained. See [facility] flowsheet for further documentation.
--- NOTE | 2019-08-21 00:23 | NUR ---
24 HR chart check completed.
--- NOTE | 2019-08-21 05:59 | NUR ---
Patient slept approx. 6 hours throughout shift. Q 15 minute safety checks continued and maintained.
[2019-08-21 08:00] VITALS: BP 140/80
--- NOTE | 2019-08-21 13:25 | NUR ---
DR WALKER IN TO ASSESS PT. PT C/O PAIN TO DR WALKER AND GAVE NEW ORDERS FOR ULTRAM 50 MG NOW AND BID PRN. PT PREVIOUSLY WALKING DOWN THE GRIJALVA FROM HER ROOM TO THE DINNING AREA. PT C/O RIGHT KNEE PAIN AND STATED IT WAS GREATER THAN 10 OUT OF 10. EXPLAINED TO PT SOMETIMES WHEN WALKING IT WILL HELP LOOSEN THE JOINT AND MAKE THE PAIN LESS. ALSO EXPLAINED TO PT IF SHE WOULD COMPLETE SOME LEG AND KNEE EXERCISES IN BED THAT IT WILL HELP LOOSEN THE JOINT PRIOR TO GETTING OUT OF BED. BY THE TIME THE PT GOT TO THE DINNING AREA PT STATED HER PAIN WAS DOWN TO A 7 WITH AMBULATION. THIS NURSE GOT THE PT A HEATED BLANKET TO WRAP AROUND THE KNEE AND PT STATED THAT WAS VERY HELPFUL. WILL CONTINUE TO MONITOR PT.
[2019-08-21 16:49] VITALS: BP 151/92
--- NOTE | 2019-08-21 17:43 | NUR ---
PT STARTED AN ARGUMENT WITH A PEER WHILE IN THE DINNING AREA. PT WAS REMOVED FROM THE AREA. tHE PT ASKED TO SPEAK TO THIS NURSE AND THIS NURSE STATED TO GO TO THE QUIET ROOM AND I WILL SPEAK TO HER. PT THEN CONTINUED ON TO HER ROOM TO GET HER KNEE BRACE. PT WAS WALKING DOWN THE GRIJALVA SHE TOOK A CUP OF ICE AND THREW IT ON THE FLOOR IN THE MIDDLE OF THE GRIJALVA BY HER ROOM. PRIOR TO LEAVING THE DINNING AREA THE PT CRUMBLED CAKE UP ONTO THE FLOOR UNDER THE TABLE.
--- NOTE | 2019-08-21 19:55 | NUR ---
24 HR chart check completed.
[2019-08-21 20:00] VITALS: BP 146/68
--- NOTE | 2019-08-21 21:34 | NUR ---
P-HYPERVERBAL, ANIMATED, ATTENTION SEEKING, PREOCCUPIED WITH MEDS & KNEE I-PROVIDE EMOTIONAL SUPPORT, ADMINISTER MEDS, MONITOR SLEEP R-ALERT & ORIENTED X 3. ATTENTION SEEKING BEHAVIORS & VERY ANIMATED, LOUD LAUGHTER & FREQUENT LOUD NOISES. REQUIRED REDIRECTION SEVERAL TIMES TO QUIET DOWN WHILE IN THE DINING ROOM SHE WAS BEING INTRUSIVE & OVER RIDING THE SOUND ON THE TV. PREOCCUPIED WITH MEDICATIONS & RIGHT KNEE PAIN. ATE SNACK. COMPLIANT WITH MEDS. CONTINUES TO HAVE INVOLUNTARY FACIAL & NECK MOVEMENTS. P-CONTINUE TO MONITOR
--- NOTE | 2019-08-22 05:33 | NUR ---
PT HAS BEEN UP & DOWN TO THE BATHROOM SEVERAL TIMES. SEVERAL CUPS OF WATER WERE FOUND IN HER ROOM & DRAWERS. SHE DID NOT FALL ASLEEP UNTIL 0300.
--- NOTE | 2019-08-22 06:15 | NUR ---
AM BEDSIDE GLUCOSE 115
[2019-08-22 07:33] VITALS: BP 115/82
--- NOTE | 2019-08-22 10:30 | NUR ---
Treatment Plan meeting was held this a.m. with Dr. Garcia, MAGNUS Marti, RN, AT, DAIRY HUSBANDMAN-S and Performance Reporter. Plan for discharge Thursday. Pt. will return home with Follow up arranged.
--- NOTE | 2019-08-22 11:39 | NUR ---
AM GROUP/EXERCISE AND REMINISCING PT ATTENDED GROUP THERAPY AND PARTICIPATED IN ALL ACTIVITIES. PT WAS HYPERVERBAL AND HAS NO SENSE OF SOCIAL ETIQUETTE, CUTTING OTHERS OFF OR YELLING OVER THEM.
--- NOTE | 2019-08-22 14:10 | NUR ---
GROUP A PT ATTENDED GROUP THERAPY AND WAS HYPERVERBAL. PT WAS "VENTING" AND WAS PERMITTED TIME TO DO SO. PT WAS REDIRECTABLE
--- NOTE | 2019-08-22 16:46 | NUR ---
DR GARCÍA ON UNIT TO ASSESS PT
--- NOTE | 2019-08-22 18:16 | NUR ---
NO MOODS OR BEHAVIORS NOTED. Q15 MINUTE SAFETY CHECKS MAINTAINED. SEE [facility] FLOWSHEET FOR SPECIFIC MONITORING.
[2019-08-22 19:08] VITALS: BP 145/80
--- NOTE | 2019-08-22 19:32 | NUR ---
24 HR chart check completed.
--- NOTE | 2019-08-22 20:53 | NUR ---
P-HYPERVERBAL, ANIMATED I-PROVIDE EMOTIONAL SUPPORT, ADMINISTER MEDS, MONITOR SLEEP R-ALERT & ORIENTED X 4. VERY ANIMATED. FREQUENT LOUD NOISES. REQUIRES REDIRECTION & IS MINIMALLY RECEPTIVE. ATE SNACK. COMPLIANT WITH MEDS. CONTINUES TO HAVE INVOLUNTARY FACIAL & NECK MOVEMENTS. P-CONTINUE TO MONITOR
--- NOTE | 2019-08-23 05:04 | NUR ---
PT HAS BEEN RESTLESS THROUGHOUT THE NIGHT. SLEPT PAST 0130 WITH BROKEN SLEEP & SEVERAL TRIPS TO THE BATHROOM. PT STATED, "I'M GETTING MY REST. I'M NOT DOING ANYTHING DIFFERENT THAN WHAT I DO AT HOME. I HAVE TO GET UP & GO SO I DONT WET THE BED"
--- NOTE | 2019-08-23 06:43 | NUR ---
AM BEDSIDE GLUCOSE 112
--- NOTE | 2019-08-23 06:44 | NUR ---
PT APPEARS DROWSY THIS AM. C/O FEELING TIRED. ALERT & ORIENTED X 3. TEMP.99.0 BEDSIDE GLUCOSE 130. SLIGHTLY DIAPHORETIC. DENIES ANY COMPLAINTS EXCEPT FEELING TIRED. COAGULATING DRYING SUPERVISOR EQUAL BILATERALLY. TOOK AM MEDICATIONS.
--- NOTE | 2019-08-23 07:28 | NUR ---
Patient resting quietly with no c/o discomfort. Respirations easy and regular. Vital signs stable. No overt distress. GIVENS,KHUSHI
[2019-08-23 07:45] VITALS: BP 142/80
--- NOTE | 2019-08-23 09:00 | NUR ---
Treatment Plan meeting was held this a.m. with MAGNUS Marti, RN,AT, NOE-S and Adoption Agent. Plan for discharge Thursday with return home.
--- NOTE | 2019-08-23 09:15 | NUR ---
Physical Therapy evaluation completed on [facility] with full evaluation to follow. Recommend physical therapy per plan of care and Home with f/u Ortho MD assessment of R knee and outpatient PT as appropriate upon discharge. Thank you for this referral. Cher Herrera PT
--- NOTE | 2019-08-23 11:40 | NUR ---
AM GROUP/PUZZLES PT ATTENDED MORNING GROUP THERAPY AND WORKED ON A PUZZLE. PT IS STILL HYPERVERBAL, OTHERWISE, PT EXHIBITED NO ADVERSE BEHAVIORS WHILE IN GROUP.
--- NOTE | 2019-08-23 14:02 | NUR ---
GROUP A PT ATTENDED THAT LATTER HALF OF GROUP. PT IS HYPERVERBAL BUT SPEAKS IN CONTEXT AND IS RELAVENT. PT EXHIBITED NO ADVERSE BEHAVIORS WHILE IN GROUP.
--- NOTE | 2019-08-23 14:55 | NUR ---
Pt hyperverbal but appropriate in content of conversation. Pt asked for clarification of pain medication for her knee. Explained that this life underwriter would speak to nursing. After speaking with RNs, returned to pt and relayed the information about the Ultram order, continuation/discontinuation of such, and possibility of ibuprofen order. Pt voiced understanding. Pt then spoke of discharging to home and her two cats.
--- NOTE | 2019-08-23 15:31 | NUR ---
PEER TO PEER SET UP FOR JORDAN ANDRADE FOR AUGUST 23 BETWEEN 8:30 AND 9:00 AM. SAIMA HANKS INFORMED.
--- NOTE | 2019-08-23 15:40 | NUR ---
GROUP B PT ATTENDED GROUP THERAPY AND PARTICIPATED IN ALL ACTIVITIES. PT IS STILL HYPERVERBAL. NO ADVERSE BEHAVIORS OTHERWISE.
[2019-08-23 19:02] VITALS: BP 150/83
--- NOTE | 2019-08-23 20:06 | NUR ---
24 HR chart check completed.
--- NOTE | 2019-08-23 21:21 | NUR ---
P-HYPERVERBAL, ANIMATED I-REDIRECT, ADMINISTER MEDS, MONITOR SLEEP R-ALERT & ORIENTED X 4. VERY ANIMATED. FREQUENT LOUD NOISES. REQUIRES REDIRECTION & IS MINIMALLY RECEPTIVE. ATE SNACK. COMPLIANT WITH MEDS. P-CONTINUE TO MONITOR
--- NOTE | 2019-08-24 05:29 | NUR ---
PT HAS SLEPT PAST 013
--- NOTE | 2019-08-24 06:27 | NUR ---
AM BEDSIDE GLUCOSE 118
[2019-08-24 07:37] VITALS: BP 134/84
--- NOTE | 2019-08-24 09:00 | NUR ---
Treatment Plan meeting was held this a.m. with MAGNUS Marti RN AT, [facility] and Storage Wharfage Clerk. Plan for discharge over the next few days. Pt. is not psychiatrically stable to discharge home per Dr. Garcia.
--- NOTE | 2019-08-24 11:42 | NUR ---
AM GROUP PT ATTENDED MORNING GROUP THERAPY AND PARTICIPATED IN ALL ACTIVITIES. PT WAS HYPERVERBAL BUT WAS ABLE TO LOWER HER VOICE WHEN REMINDED AND WAS LESS INTRUSIVE OF OTHERS COMMENTS.
--- NOTE | 2019-08-24 11:58 | NUR ---
Pt continues to be hyperverbal but with a lessened intensity this AM. Pt also voices flight of ideas as she moves from topic to topic. This automotive service writer did observe pt's ability to control her voice after being asked to do so by the early childhood education coordinator. Pt did interact appropriately with another peer who was present.
--- NOTE | 2019-08-24 13:00 | NUR ---
DR. WALL ON UNIT TO ASSESS PATIENT.
--- NOTE | 2019-08-24 13:43 | NUR ---
P: HYPERVERBAL, AMINATED, INTRUSIVE AND DISRUPTIVE WITH OTHER PATIENTS. I: ONE ON ONE, REDIRECTION AND ENCOURGED TO PARTICPATE IN GROUP SESSION. R: EFFECTIVE. PATIENT IS ALERT TO PERSON, PLACE, TIME AND SITUATION, ABLE TO VOICE NEEDS. MOOD IS IRRITABLE AT TIMES. DENIES ANY HALLUCIANTIONS, DELUSIONS, HI/SI OR PAIN. INDEPENDENT WITH ACTIVITIES OF DAILY LIVING, CONTINENT OF BOWEL AND BLADDER. SET UP FOR MEALS, INTAKES ARE GOOD WITH ADEQUATE FLUIDS. MEDICATION COMPLAINT WITH EDUCATION PROVIDED. Q 125 MINUTE SAFETY CHECKS MAINTAINED. PARTICIPATED IN AFTERNOON GROUP AND INTERACTIVE WITH STAFF AND OTHER PATIENTS. P: CONTINUE TO MONITOR FOR MEDICAITON COMPLIANCE, MOOD AND IRRITABILITY. CONTINUE TO PROVIDE ONE ON ONE AND REDIRECTION NEEDED.
--- NOTE | 2019-08-24 14:09 | NUR ---
GROUP A PT WAS PRESENT FOR GROUP THERAPY BUT DID NOT PARTICIPATE SHE WAS STILL EATING LUNCH. PT WAS HYPERVERBAL AND INTRUSIVE. PT NEEDS CONSTANT REMINDERS TO LOWER HER VOICE AND TO LET SOMEONE ELSE SPEAK
--- NOTE | 2019-08-24 15:58 | NUR ---
GROUP B PT WAS PRESENT FOR GROUP THERAPY AND WATCHED A MOVIE. PT ATTEMPTED CONVERSATION SEVERAL TIMES BUT WAS ENCOURAGED TO WATCH THE MOVIE. PT WAS ACTUALLY QUIET WHILE ENGAGED IN THE MOVIE.
--- NOTE | 2019-08-24 16:44 | NUR ---
Shift chart check completed.
[2019-08-24 19:42] VITALS: BP 136/88
--- NOTE | 2019-08-24 22:14 | NUR ---
PT HAS BEEN INTRUSIVE, DISRUPTIVE, ARGUMENTATIVE, DEMANDING, LABILE. PT ARGUING WITH STAFF OVER MEDICATIONS, REFUSED TOFRANIL. STATES "I DON'T KNOW WHY DOCTORS DO THIS. I CAN'T TAKE THAT. I TAKE AMBIEN". PT DISTURBING ROOMMATE AT BEDTIME TALKING TO HER WHILE SHE IS ATTEMPTING TO SLEEP. PT ALSO MAKING LOUD SIGHING NOISES DISTURBING ROOMMATE. PT DEMANDING PRN BIOTENE, PT EDUCATED THAT IT IS NOT AVAILABLE YET DUE TO LAST ADMINISTRATION AT 1544. PT STATES "OH I FORGOT ABOUT THAT. I CAN REMEMBER A TIME WHEN NURSES DID THEIR JOBS". PT THEN STATING "I'M NOT TRYING TO ARGUE WITH ANYONE. IT IS THE LATUDA MAKING ME SAY THE WRONG THING". PATIENT EDUCATED ON TREATMENT PLAN AND MEDICATIONS. PT'S ROOM CHANGED TO ALLOW ROOMMATE TO REST. PT CONTINUES TO GET UP AND DOWN OUT OF BED. WILL CONTINUE TO ENCOURAGE PT TO REST, PROVIDE WITH LOW STIMULATION, AND MONITOR Q15 MIN FOR SAFETY.
--- NOTE | 2019-08-25 05:56 | NUR ---
PT SLEPT TWO INTERRUPTED HOURS T/O NIGHT.
[2019-08-25 08:00] VITALS: BP 140/80
--- NOTE | 2019-08-25 08:30 | NUR ---
Treatment Plan meeting was held this a.m. via telephone with Dr. Garcia, RN, AT, PLASTIC CNC MACHINE OPERATOR-S and Plier Worker. Plan for discharge Possible Thursday. Dr. Garcia continues to adjust medications and Pt. is unstable at this time for discharge Home.
--- NOTE | 2019-08-25 09:05 | NUR ---
updated on pt progress and rounded via telehealth. Medication orders updated per MD orders from . Read back and verified.
--- NOTE | 2019-08-25 10:50 | NUR ---
IP STAY DENIAL OVERTURNED AND STAY APPROVED AFTER PEER TO PEER.
--- NOTE | 2019-08-25 11:51 | NUR ---
Individual time spent with pt this AM. Pt spoke about the history of [place] and shared that her father was a history buff. Discussed pt's mood and coping skills for when pt returns to her apartment. Pt was calmer during today's interaction and was able to stay on topic.
--- NOTE | 2019-08-25 11:56 | NUR ---
AM GROUP PT ATTENDED MORNING GROUP THERAPY AND PARTICIPATED IN ALL ACTIVITIES. PT IS HYPERVERBAL BUT ABLE TO PAUSE WHEN REMINDED.
--- NOTE | 2019-08-25 13:56 | NUR ---
P: HYPERVERBAL, AMINATED, INTRUSIVE AND DISRUPTIVE WITH OTHER PATIENTS. I: ONE ON ONE, REDIRECTION AND ENCOURGED TO PARTICPATE IN GROUP SESSION. R: EFFECTIVE. PATIENT IS ALERT TO PERSON, PLACE, TIME AND SITUATION, ABLE TO VOICE NEEDS. MOOD IS IRRITABLE AT TIMES. DENIES ANY HALLUCIANTIONS, DELUSIONS, HI/SI OR PAIN. INDEPENDENT WITH ACTIVITIES OF DAILY LIVING, CONTINENT OF BOWEL AND BLADDER. SET UP FOR MEALS, INTAKES ARE GOOD WITH ADEQUATE FLUIDS. MEDICATION COMPLAINT WITH EDUCATION PROVIDED. Q 15 MINUTE SAFETY CHECKS MAINTAINED. PARTICIPATED IN BOTH GROUP SESSIONS AND INTERACTIVE WITH STAFF AND OTHER PATIENTS. P: CONTINUE TO MONITOR FOR MEDICAITON COMPLIANCE, MOOD AND IRRITABILITY. CONTINUE TO PROVIDE ONE ON ONE AND REDIRECTION NEEDED.
--- NOTE | 2019-08-25 14:02 | NUR ---
GROUP A PT ATTENDED GROUP THERAPY AND DESPITE GIVEN A TASK WAS UNABLE TO PERFORM IT. PT IS HYPERVERBAL AND CANNOT TALK AND DO A TASK AT THE SAME TIME. PT WAS FOCUSED ON GETTING THE NEWSPAPER FROM A PEER AND WENT FAR TAKING THEM BOTH TO HER ROOM. PT WAS ASKED POLITELY TO BRING THEM BACK TO THE DAYROOM BUT DID NOT. PT WAS IN HER ROOM WITH THEM AND I WENT AND ASKED FOR ONE OF THEM WHICH SHE RELUCTANLY SURRENDERED.
--- NOTE | 2019-08-25 14:54 | NUR ---
Received a voicemail message from pt's sister Jen requesting a return call. Spoke with pt and received verbal permission from pt to speak to Jen. Phoned Jen and provided update.
--- NOTE | 2019-08-25 15:38 | NUR ---
GROUP B PT ATTENDED GROUP THERAPY AND PARTICIPATED BY SOCIALIZING AND LISTENING TO MUSIC. PT IS STILL HYPERVERBAL AND LOUD AND NEEDS CONSTANT REMINDERS TO LOWER HER VOICE OR TO LET SOMEONE SPEAK.
[2019-08-25 19:04] VITALS: BP 118/75
--- NOTE | 2019-08-25 21:00 | NUR ---
24 HR chart check completed.
--- NOTE | 2019-08-26 02:20 | NUR ---
PATIENT IS ALERT. ANIMATED AND HYPERVERBAL. NEEDS REDIRECTION WITH WHAT IS APPROPRIATE. DID RECIEVE A PHONE CALL TODAY AND WAS LOUD AND PUT PHONE ON SPEAKER. HAD TO BE ENCOURAGED TO NOT BE LOUD AND ON SPEAKER. DID TAKE A SHOWER. IS MED COMPLIANT AND RESTING IN BED AT PRESENT.
--- NOTE | 2019-08-26 06:04 | NUR ---
PATIENT SLEPT MORE THAN 7 HOURS
[2019-08-26 07:52] VITALS: BP 139/75
--- NOTE | 2019-08-26 07:52 | NUR ---
Patient eating breakfast in dining room with peers. Respirations easy and regular. Vital signs stable. No overt distress. ROSA HERNANDEZ
--- NOTE | 2019-08-26 08:48 | NUR ---
[facility]-BC on unit to see pt at this time, update given.
[2019-08-26 09:58] LABS: BASO % 0.7 % (0.0-1.0); EOS # 0.1 10*3/uL (0.0-0.4); EOS % 1.7 % (1.0-4.0); HEMATOCRIT 37.8 % (37.0-47.0); LYMPH # 1.9 10*3/uL (1.3-4.4); LYMPH % 32.9 % (27.0-41.0); MEAN CELL VOLUME 87.3 fl (81.0-99.0); MEAN CORPUSCULAR HGB 27.9 pg (27.0-31.0); MEAN PLATELET VOLUME 9.4 fl (9.6-12.3); MONO # 0.8 10*3/uL (0.1-1.0); MONO % 13.9 % (3.0-9.0); NEUT # 2.9 10*3/uL (2.3-7.9); NEUT % 50.3 % (47.0-73.0); PLATELET COUNT AUTOMATED 385 10*3/uL (130-400); RED BLOOD COUNT 4.33 10*6/uL (4.10-5.10); RED CELL DISTRI WIDTH 13.2 % (0-14.5); WHITE BLOOD COUNT 5.8 10*3/uL (4.8-10.8)
--- NOTE | 2019-08-26 10:48 | NUR ---
Treatment team meeting held this AM with Kaia HALEY, RN, nurse coordinator, and GAYLE. Continue to work on stabilizing pt with change in medications. Discharge next week to home with follow-up at [facility].
[2019-08-26 11:00] LABS: ALBUMIN 4.3 gm/dl (3.1-4.5); ALKALINE PHOSPHATASE 66 U/L (45-117); BUN 12 mg/dl (7-24); CHLORIDE 101 mmol/L (98-107); CREATININE 0.76 mg/dL (0.55-1.02); SGOT/AST 14 IU/L (3-35); SGPT/ALT 25 U/L (12-78); SODIUM 134 mmol/L (136-145); TOTAL PROTEIN 7.5 gm/dL (6.4-8.2)
--- NOTE | 2019-08-26 11:32 | NUR ---
AM GROUP PT ATTENDED MORNING GROUP THERAPY AND PARTICIPATED IN ALL ACTIVITIES. PT IS STILL HYPERVERBAL BUT DOES TAKE A BREATH OCCASIONALLY. PT GETS FOCUSED ON ONE SUBJECT AND WILL NOT LET IT GO. PT CAN BE ARGUMENTATIVE AND RESISTANT TO DIRECTION OR CORRECTION.
--- NOTE | 2019-08-26 14:12 | NUR ---
GROUP A PT ATTENDED GROUP THERAPY AND PARTICIPATED BY MAKING A BEADED BRACELET. PT IS SLOWING DOWN A LITTLE AND IS LESS HYPERVERBAL.
--- NOTE | 2019-08-26 15:28 | NUR ---
Met with pt individually. Pt expressed concern about her current medications. Discussed this further. Informed pt that this keno writer/runner would request RN to provide med education. Pt voiced appreciation. Discussed other concerns of pt. Pt shared further personal history. After meeting with pt, met with RN and informed her of pt concerns.
--- NOTE | 2019-08-26 16:22 | NUR ---
PER CALL FROM CRISTINA GARCIA APPROVED THROUGH 08/27 WITH NRD ON 08/28. AUTH NUMBER [id number].
--- NOTE | 2019-08-26 17:17 | NUR ---
PRN ULTRAM 50MG PO GIVEN AT THIS TIME PER PT REQUEST FOR C/O RIGHT KNEE PAIN RATED LEVEL 3/10 ON PAIN SCALE. WILL MONITOR FOR EFFECTIVENESS.
--- NOTE | 2019-08-26 17:50 | NUR ---
P: LESS HYPERVERBAL AND INTRUSIVE, ATTEMPTING TO SOCIALIZE WITH OTHER PATIENTS. I: ONE ON ONE, REDIRECTION AND ENCOURGED TO PARTICPATE IN GROUP SESSION. R: EFFECTIVE. PATIENT IS ALERT TO PERSON, PLACE, TIME AND SITUATION, ABLE TO VOICE NEEDS. MOOD IS DEPRESSED. DENIES ANY HALLUCIANTIONS, DELUSIONS, HI/SI OR PAIN. INDEPENDENT WITH ACTIVITIES OF DAILY LIVING, CONTINENT OF BOWEL AND BLADDER. SET UP FOR MEALS, INTAKES ARE GOOD WITH ADEQUATE FLUIDS. MEDICATION COMPLAINT WITH EDUCATION PROVIDED. Q 15 MINUTE SAFETY CHECKS MAINTAINED. PARTICIPATED IN BOTH GROUP SESSIONS AND INTERACTIVE WITH STAFF AND OTHER PATIENTS. P: CONTINUE TO MONITOR FOR MEDICAITON COMPLIANCE AND MOOD; CONTINUE TO PROVIDE ONE ON ONE AND REDIRECTION NEEDED.
[2019-08-26 19:47] VITALS: BP 123/67
--- NOTE | 2019-08-27 02:39 | NUR ---
P-ISOLATIVE, HYPERVERBAL I-REDIRECTION WITH 1:1 THERAPEUTIC INTERVENTIONS AND COMMUNICATION. PRESENT REALITY. EDUCATE AND ENCOURAGE MEDICATION COMPLIANCE R-MEDICATION COMPLIANT AT HS. PATIENT PROVIDED NOURISHMENT AND FLUIDS AT HS. THIS NURSE PROVIDED PATIENT WITH 1:1 THERAPEUTIC COMMUNICATION AND MEDICATION EDUCATION. PATIENT VERBALIZED UNDERSTANDING OF MEDICATIONS. PATIENT ANIMATED AND WITH OCCASIONAL LOUD SIGHING WHEN COMMUNICATING WITH NURSING STAFF. PATIENT WITH NO HALLUCINATIONS OR DELUSIONS. PATIENT WITH NO HOMICIDAL IDEATIONS AND DENIES SUICIDAL IDEATIONS AT THIS TIME. P-CONTINUE TO ENCOURAGE MEDICATION COMPLIANCE, CONTINUE TO PRESENT REALITY. ENCOURAGE GROUP THERAPY WHILE AWAKE
--- NOTE | 2019-08-27 05:42 | NUR ---
PATIENT SLEPT APPROX 4 HOURS THROUGHOUT THE NIGHT INTERRUPTED.
[2019-08-27 08:00] VITALS: BP 120/67
--- NOTE | 2019-08-27 11:30 | NUR ---
Dr. Renee on floor to assess patient update provided.
--- NOTE | 2019-08-27 12:00 | NUR ---
Shift chart check completed.
--- NOTE | 2019-08-27 12:59 | NUR ---
P- Animated affect. Intrussive with other patients. Preoccupied and demanding with medications. I- Assess mood, orientation, SI/HI, hallucinations, delusions or pain. 1:1 interaction with emotional support and ventilation of feelings provided. Redirect pt with inappropriate behavior. Provide medications on time with education on each. R- Alert and oriented x3. States mood is "Fine" in an animated voice. Denies SI/HI, hallucinations or pain. No s/s of interacting with internal stimuli. No s/s of paranoia or delusional thought process. No s/s of distress; resps even and unlabored on room air. Medication compliant. Voices needs with no difficulty. Ambulates with a steady gait. Pt demanding and preoccupied about medications; education and reassurance slightly effective. 1:1 interaction slightly effective. P- Assess mood, orientation, SI/HI, hallucinations, delusions or pain every shift. Provide meds on time with education on each. Redirect with inappropriate behavior. Provide medications on time with education on each. Q15 minute checks maintained for safety.
--- NOTE | 2019-08-27 14:10 | NUR ---
Patient stating that she is having nausea and throwing up. Noted patient puked on the wall, behind the toilet, and on the dining room countertop. Pt redirected on where to vomit and given a basin. Dr. Renee notified and zofran order. Pt stating that she is also having dry mouth. Requesting and received at this time zofran and bioten per orders. Will monitor for effectiveness.
--- NOTE | 2019-08-27 15:10 | NUR ---
Patient states that PRN was effective. No further voiced complaints.
[2019-08-27 20:00] VITALS: BP 148/90
--- NOTE | 2019-08-28 00:51 | NUR ---
P-INTRUSIVE, RESTLESS I-REDIRECTION WITH 1:1 THERAPEUTIC INTERVENTIONS AND COMMUNICATION. PRESENT REALITY. EDUCATE AND ENCOURAGE MEDICATION COMPLIANCE R-MEDICATION COMPLIANT AT HS. PATIENT PROVIDED NOURISHMENT AND FLUIDS AT HS. PATIENT ANIMATED AND WITH OCCASIONAL LOUD SIGHING WHEN COMMUNICATING WITH NURSING STAFF AND PEERS. PATIENT WITH NO HALLUCINATIONS OR DELUSIONS. PATIENT WITH NO HOMICIDAL IDEATIONS AND DENIES SUICIDAL IDEATIONS AT THIS TIME. PATIENT WITH REQUEST FOR ZOFRAN AT HS WITH EPISODE OF EMESIS X 1. PATIENT SEEN BY NURSING STAFF FORCING SELF TO HAVE EMESIS. PATIENT ALSO REQUESTED BIOTENE MOUTHWASH. BOTH MEDICATIONS WITH EFFECTIVE RESULTS. PATIENT AT THIS TIME REQUESTED TYLENOL FOR A HEADACHE. PATIENT STATED MEDICATION IS WORKING AT THIS TIME. P-CONTINUE TO ENCOURAGE MEDICATION COMPLIANCE, CONTINUE TO PRESENT REALITY. ENCOURAGE GROUP THERAPY WHILE AWAKE
--- NOTE | 2019-08-28 06:34 | NUR ---
PATIENT SLEPT APPROX 7 HOURS THROUGHOUT THE NIGHT UNINTERRUPTED. NO DISTRESS NOTED.
[2019-08-28 08:00] VITALS: BP 138/65
--- NOTE | 2019-08-28 08:00 | NUR ---
Patient feeding self breakfast in dining room. Respirations easy and regular. Vital signs stable. No overt distress. ROSA HERNANDEZ
--- NOTE | 2019-08-28 10:59 | NUR ---
Pt's sister Jen Kenney called in, spoke to this RN, stated that Claudia runs errands for her sometimes and still has her debit card in her wallet. Jen states she needs her debit card. Pt's wallet was obtained from the lock box, a [employer] debit card for Jen Kenney was retrieved from lock box. This RN phoned Jen and let her know that her debit card was here. Jen states she will have her niece come and get it. This was discussed with Claudia by this RN, witnessed by 2nd RN, with pt's permission to release card to niece.
--- NOTE | 2019-08-28 11:30 | NUR ---
DR WALKER ON UNIT TO ASSESS PT. NNO AT THIS TIME.
--- NOTE | 2019-08-28 12:41 | NUR ---
PRN Biotene mouthspray given at this time per pt request for c/o dry mouth. Will monitor for effect.
--- NOTE | 2019-08-28 13:27 | NUR ---
PRN Tylenol 1000mg PO given at this time per pt request for c/o headache rated level 5/10 on pain scale. Will monitor for effect. Biotene given earlier effective. No further complaints of dry mouth at this time.
--- NOTE | 2019-08-28 15:28 | NUR ---
PRN Maalox 30ml PO given at this time per pt request for c/o indigestion. Will monitor for effect. Tylenol given earlier for headache effective, pt voices no further c/o pain/headache.
--- NOTE | 2019-08-28 17:35 | NUR ---
Pt requesting medication for constipation despite having BM documented from 08/27/19. Pt states "that was a miscommunication. I meant to say 'no' when they asked me, but what came out was 'malcolm' and that kind of sounds like 'yes'. I haven't gone number 2 for a few days". Offered pt MOM per PRN orders. Pt instead requested prune juice. Prune juice given. Will monitor for effect. Maalox given earlier effective. Pt voices no further c/o indigestion/gas.
--- NOTE | 2019-08-28 18:45 | NUR ---
P- Intrusive, hyperverbal, multiple complaints throughout the day requesting multiple PRN medications, arguementative over medication orders I- Orientation, mood and behaviors assessed. Assessed pt for SI/HI, hallucinations, paranoia and/or delusions. Medications administered as per physician's orders. Assistance with ADL care provided as needed. Encouraged pt to attend and participate in torrez milieu groups and activities. R- Pt is alert and oriented x4. Memory appears to be intact. Resps easy and even on room air. Mood appears stable, affect animated at times. Speech remains rapid, pt is hyperverbal. Pt denies feeling sad, depressed or anxious. Pt denies hallucinations, no response to internal stimuli noted. No paranoia or delusions noted. Pt voicing multiple and frequent complaints throughout the day requesting multiple PRN medications. Pt was given medications for c/o dry mouth, indigestion/gas, headache and constipation this shift. Pt then began arguing with RN over orders for blue gel for knee. This RN spoke at length with pt to explain blue gel is ordered twice daily routine. Once in the morning and once at bedtime. Pt insists she was given blue gel in the AM and after lunch. Blue gel was not given after lunch by this RN or 2nd RN. Pt remains arguementative at times and intrusive with peers. No physically aggressive or threatening behaviors. No elopement attempts. No distress noted. P- Plan to continue current treatment, continue to monitor mood and behaviors, provide appropriate reorientation, redirection and 1:1 as needed. Continue to encourage medication compliance as well as group attendance and participation.
[2019-08-28 19:54] VITALS: BP 129/68
--- NOTE | 2019-08-29 02:23 | NUR ---
P-INTRUSIVE, DEMANDING I-REDIRECTION WITH 1:1 THERAPEUTIC INTERVENTIONS AND COMMUNICATION. PRESENT REALITY. EDUCATE AND ENCOURAGE MEDICATION COMPLIANCE R-MEDICATION COMPLIANT AT HS. PATIENT PROVIDED NOURISHMENT AND FLUIDS AT HS. PATIENT ANIMATED AND WITH OCCASIONAL LOUD SIGHING WHEN COMMUNICATING WITH NURSING STAFF AND PEERS. PATIENT WITH NO HALLUCINATIONS OR DELUSIONS. PATIENT WITH NO HOMICIDAL IDEATIONS AND DENIES SUICIDAL IDEATIONS AT THIS TIME. PATIENT REQUESTED MILK OF MAGNESIA FOR COMPLAINT OF CONSTIPATION WITH INEFFECTIVE RESULTS AT THIS TIME. PATIENT ALSO REQUESTING TO TALK TO DR WALKER IN AM TO SEE IF THERE COULD BE ADJUSTMENTS CAN BE MADE FOR ACID REFLUX. P-CONTINUE TO ENCOURAGE MEDICATION COMPLIANCE, CONTINUE TO PRESENT REALITY, ENCOURAGE GROUP THERAPY WHILE AWAKE
--- NOTE | 2019-08-29 05:43 | NUR ---
PT SLEPT 0 HOURS LAST NIGHT
[2019-08-29 07:02] LABS: BUN 11 mg/dl (7-24); CHLORIDE 97 mmol/L (98-107); CREATININE 0.66 mg/dL (0.55-1.02); POTASSIUM 4.5 mmol/L (3.5-5.1); SODIUM 130 mmol/L (136-145)
[2019-08-29 07:58] VITALS: BP 115/68
--- NOTE | 2019-08-29 08:04 | NUR ---
Patient eating breakfast in dining room with peers. Respirations easy and regular. Vital signs stable. No overt distress. ROSA HERNANDEZ
--- NOTE | 2019-08-29 08:30 | NUR ---
Treatment Plan meeting was held this a.m. with Dr. Garcia, [employer]LLER Kaia, RN, AT, SPECIAL EVENTS PLANNER-S and Research Mechanic. Plan for discharge today with return home. Pt. [facility] with Coty Santos September 26 3:[address] Renee 09/05/2019 at 3:15 p.m.
[2019-08-29] MEDS ORDERED: LORAZEPAM1 MG PO (08:54)
[2019-08-29] MEDS ORDERED: PALIPERIDONE ER6 MG PO (08:54)
[2019-08-29] MEDS ORDERED: TRIHEXYPHENIDYL2 M3 PO (08:54)
[2019-08-29] MEDS ORDERED: VITAMIN E400 UNI3 PO (08:58)
[2019-08-29] MEDS ORDERED: VITAMIN D3125 MC1 PO (08:58)
--- NOTE | 2019-08-29 10:02 | NUR ---
notified of discharge for today, notified pt's sodium level low at 130 this AM with morning labs. states will come to see pt today around 1pm, requests pt not be discharged until after she is seen by .
--- NOTE | 2019-08-29 14:14 | NUR ---
Transportation arranged via [facility]. Spoke with Nuria Juárez Video Game Technician. [facility] will bill Maryan Tucker at the [facility] for Transportation. Call Placed to [facility] and Transportation arranged with picking supervisor time 5 Minutes.
--- NOTE | 2019-08-29 14:26 | NUR ---
Patient discharged to home today. Follow-up will be with Coty Santos NP at [facility]. While at [facility], pt's mood stabilized. She participated in [facility] programming and was always pleasant with this freelance writer.
== END 2019-08-29 14:17 | disposition home or self-care (01) | DRG 885 ==
LOC: ED 15:56 → 3N 20:45
PROVIDERS: Emergency Medicine; Internal Medicine; Internal Medicine Nephrology; ADMIT Psychiatry & Neurology Psychiatry
DX: F31.60 Bipolar disorder, current episode mixed, unspecified (principal); E87.2 Acidosis; F60.3 Borderline personality disorder; M25.461 Effusion, right knee; E78.5 Hyperlipidemia, unspecified; I10 Essential (primary) hypertension; J44.9 Chronic obstructive pulmonary disease, unspecified; F41.9 Anxiety disorder, unspecified; E53.8 Deficiency of other specified B group vitamins; E55.9 Vitamin D deficiency, unspecified; D64.9 Anemia, unspecified; E87.6 Hypokalemia; M17.11 Unilateral primary osteoarthritis, right knee; E87.8 Other disorders of electrolyte and fluid balance, not elsewhere classified; E66.3 Overweight; X58.XXXS Exposure to other specified factors, sequela; Z79.4 Long term (current) use of insulin; E11.65 Type 2 diabetes mellitus with hyperglycemia; T78.40XS Allergy, unspecified, sequela; Z88.8 Allergy status to other drugs, medicaments and biological substances; Z87.891 Personal history of nicotine dependence; Z82.49 Family history of ischemic heart disease and other diseases of the circulatory system; Z80.8 Family history of malignant neoplasm of other organs or systems; Z79.899 Other long term (current) drug therapy; Z68.29 Body mass index [BMI] 29.0-29.9, adult

== ENCOUNTER → 2020-01-02 | Outpatient (CLI) | payer OTHER ==
[~2020-01-02] MED LIST changes: +ASPIRIN CHEWABL81 MG PO; +ESCITALOPRAM OX20 MG PO; +LISINOPRIL2.5 MG PO; +LORATADINE-D 11 EACH PO; +LORAZEPAM1 MG PO; +MONTELUKAST SOD10 MG PO; +PALIPERIDONE ER6 MG PO; +TRIHEXYPHENIDYL2 M3 PO; +VITAMIN D3125 MC1 PO; +VITAMIN E400 UNI3 PO
== END | disposition home or self-care (01) ==
LOC: MAMMO 12-01 14:00
PROVIDERS: ATTEND Internal Medicine
DX: Z12.31 Encounter for screening mammogram for malignant neoplasm of breast (principal)

== ENCOUNTER → 2021-06-28 | Outpatient (CLI) | payer OTHER | END | disposition home or self-care (01) | LOC: ORTHO 00:21 | PROVIDERS: ATTEND Orthopaedic Surgery | DX: M17.0 Bilateral primary osteoarthritis of knee (principal) ==

== ENCOUNTER → 2022-01-08 | Outpatient (CLI) | payer OTHER | LOC: MAMMO 12-18 14:00 | PROVIDERS: ATTEND Internal Medicine | DX: Z12.31 Encounter for screening mammogram for malignant neoplasm of breast (principal) ==

== ENCOUNTER → 2022-08-14 | Outpatient (CLI) | payer OTHER ==
[2022-08-14 12:18] LABS: BUN 5 mg/dl (9-23); CHLORIDE 95 mmol/L (98-107); POTASSIUM 4.3 mmol/L (3.4-5.1)
[2022-08-14 12:21] LABS: VITAMIN D, 25-HYDROXY 47.9 ng/mL (30-100)
== END | disposition home or self-care (01) ==
LOC: LAB 11:17
PROVIDERS: ATTEND Internal Medicine Nephrology
DX: E11.9 Type 2 diabetes mellitus without complications (principal); E83.52 Hypercalcemia

== ENCOUNTER → 2022-09-30 | Outpatient (CLI) | payer OTHER ==
[2022-09-30 15:29] LABS: CHLORIDE 96 mmol/L (98-107); FREE T4 1.39 ng/dl (0.89-1.76); POTASSIUM 4.5 mmol/L (3.4-5.1)
[2022-09-30 15:30] LABS: BUN < 5 mg/dl (9-23)
== END | disposition home or self-care (01) ==
LOC: LAB 13:53
PROVIDERS: ATTEND Internal Medicine Nephrology
DX: E83.52 Hypercalcemia (principal); E87.1 Hypo-osmolality and hyponatremia

== ENCOUNTER → 2022-10-01 | Outpatient (CLI) | payer OTHER | END | disposition home or self-care (01) | LOC: LAB 01:33 | PROVIDERS: ATTEND Internal Medicine Nephrology | DX: E87.1 Hypo-osmolality and hyponatremia (principal); E83.52 Hypercalcemia ==

== ENCOUNTER → 2023-05-18 | Day surgery (SDC) | payer OTHER ==
[~2023-05-18] VITALS: Ht 160 cm; Wt 63.5 kg
[~2023-05-18] MED LIST changes: +ASPIRIN, CHEWABLE 81 MG TAB PO SCH; +Albuterol Sulfate 2.5 MG/3 ML VIAL NEB PRN; +Cholecalciferol 5,000 IU CAP (125 MCG) PO SCH; +Insulin Glargine, Recombinan 1 UNIT/0.01 ML SC SCH; +LISINOPRIL 2.5 MG TAB PO SCH; +Lidocaine Hydrochloride 2% 10 ML AMP IM ONE; +Loratadine/Pseudoephedrine S 1 TAB TAB PO SCH; +Metoprolol Tartrate 50 MG TAB PO SCH; +Midazolam Hydrochloride 2 MG/2 ML VIAL IV ONE; +Montelukast Sodium 10 MG TAB PO SCH; +PRAVASTATIN SODIUM 40 MG TAB PO SCH; +PROPOFOL 200 MG/20 ML VIAL IV ONE; +Paliperidone 6 MG TER PO SCH; +SODIUM CHLORIDE 0.9% 1,000 ML IV ONE; +Trihexyphenidyl Hydrochlorid 2 MG TAB PO SCH; +VITAMIN E 400 IU CAP PO SCH
[2023-05-18 07:39] VITALS: BP 146/85
[2023-05-18 08:50] VITALS: BP 111/70
[2023-05-18 09:05] VITALS: BP 146/83
[2023-05-18 09:16] VITALS: BP 138/83
== END | disposition home or self-care (01) ==
LOC: SDC 05-14 08:45
PROVIDERS: ATTEND Surgery
DX: R19.4 Change in bowel habit (principal); K63.5 Polyp of colon; I10 Essential (primary) hypertension; E78.00 Pure hypercholesterolemia, unspecified; E11.9 Type 2 diabetes mellitus without complications; J44.9 Chronic obstructive pulmonary disease, unspecified; K21.9 Gastro-esophageal reflux disease without esophagitis; F41.9 Anxiety disorder, unspecified; F32.A Depression, unspecified; F17.210 Nicotine dependence, cigarettes, uncomplicated; Z88.1 Allergy status to other antibiotic agents; Z79.899 Other long term (current) drug therapy

== ENCOUNTER → 2023-05-21 | Outpatient (CLI) | payer OTHER ==
[~2023-05-21] MED LIST changes: -ASPIRIN, CHEWABLE 81 MG TAB PO SCH; -Albuterol Sulfate 2.5 MG/3 ML VIAL NEB PRN; -Cholecalciferol 5,000 IU CAP (125 MCG) PO SCH; -Insulin Glargine, Recombinan 1 UNIT/0.01 ML SC SCH; -LISINOPRIL 2.5 MG TAB PO SCH; -Lidocaine Hydrochloride 2% 10 ML AMP IM ONE; -Loratadine/Pseudoephedrine S 1 TAB TAB PO SCH; -Metoprolol Tartrate 50 MG TAB PO SCH; -Midazolam Hydrochloride 2 MG/2 ML VIAL IV ONE; -Montelukast Sodium 10 MG TAB PO SCH; -PRAVASTATIN SODIUM 40 MG TAB PO SCH; -PROPOFOL 200 MG/20 ML VIAL IV ONE; -Paliperidone 6 MG TER PO SCH; -SODIUM CHLORIDE 0.9% 1,000 ML IV ONE; -Trihexyphenidyl Hydrochlorid 2 MG TAB PO SCH; -VITAMIN E 400 IU CAP PO SCH
== END | disposition home or self-care (01) ==
LOC: MAMMO 04-28 14:00
PROVIDERS: ATTEND Internal Medicine
DX: R92.8 Other abnormal and inconclusive findings on diagnostic imaging of breast (principal); R92.312 Mammographic fatty tissue density, left breast; R92.1 Mammographic calcification found on diagnostic imaging of breast

== ENCOUNTER → 2023-06-26 | Outpatient (CLI) | payer OTHER | END | disposition home or self-care (01) | LOC: RAD 14:12 | PROVIDERS: ATTEND Internal Medicine | DX: M17.0 Bilateral primary osteoarthritis of knee (principal); M25.761 Osteophyte, right knee; M25.762 Osteophyte, left knee; M25.862 Other specified joint disorders, left knee; M25.861 Other specified joint disorders, right knee ==

== ENCOUNTER 2025-01-06 14:53 | Emergency (ER) | payer OTHER ==
[~2025-01-06] VITALS: Ht 160 cm; Wt 63.5 kg
[2025-01-06 15:00] VITALS: BP 115/73
== END 2025-01-06 17:39 | disposition home or self-care (01) ==
LOC: ED 14:53
DX: S80.01XA Contusion of right knee, initial encounter (principal); F32.A Depression, unspecified; J45.909 Unspecified asthma, uncomplicated; K21.9 Gastro-esophageal reflux disease without esophagitis; E11.9 Type 2 diabetes mellitus without complications; I10 Essential (primary) hypertension; E78.00 Pure hypercholesterolemia, unspecified; M19.90 Unspecified osteoarthritis, unspecified site; Z87.891 Personal history of nicotine dependence; Z98.890 Other specified postprocedural states; Z98.51 Tubal ligation status; Z88.8 Allergy status to other drugs, medicaments and biological substances; W19.XXXA Unspecified fall, initial encounter; Y93.89 Activity, other specified; Y92.89 Other specified places as the place of occurrence of the external cause; Y99.8 Other external cause status

== ENCOUNTER 2025-01-11 12:22 | Emergency (ER) | payer OTHER ==
[~2025-01-11] VITALS: Ht 160 cm; Wt 61.7 kg
[2025-01-11 12:40] VITALS: BP 112/80
[2025-01-11 13:02] LABS: BASO # 0.0 10*3/uL (0.0-0.1); BASO % 0.4 % (0.0-1.0); EOS # 0.1 10*3/uL (0.0-0.4); EOS % 0.8 % (1.0-4.0); MEAN CELL VOLUME 89.2 fl (81.0-99.0); MEAN CORPUSCULAR HGB 28.0 pg (27.0-31.0); MEAN PLATELET VOLUME 8.5 fl (9.6-12.3); MONO # 0.9 10*3/uL (0.1-1.0); MONO % 12.0 % (3.0-9.0); NEUT # 4.8 10*3/uL (2.3-7.9); NEUT % 65.9 % (47.0-73.0); NUCLEATED RED BLOOD CELL 0.0 % (0.0-0.0); NUCLEATED RED BLOOD CELL 0.0 10*3/uL (0.0-0.0); PLATELET COUNT AUTOMATED 577 10*3/uL (130-400); RED CELL DISTRI WIDTH 13.0 % (0-14.5)
[2025-01-11 13:19] LABS: ACT PARTIAL THROMBO TIME 28.1 SECONDS (20.0-32.1)
[2025-01-11 13:21] LABS: BUN 14 mg/dl (9-23)
== END 2025-01-11 15:49 | disposition home or self-care (01) ==
LOC: ED 12:22
PROVIDERS: Nurse Practitioner Family
DX: S80.01XA Contusion of right knee, initial encounter (principal); K21.9 Gastro-esophageal reflux disease without esophagitis; E11.9 Type 2 diabetes mellitus without complications; I10 Essential (primary) hypertension; J44.9 Chronic obstructive pulmonary disease, unspecified; F32.A Depression, unspecified; E78.5 Hyperlipidemia, unspecified; M19.90 Unspecified osteoarthritis, unspecified site; Z88.8 Allergy status to other drugs, medicaments and biological substances; Z79.899 Other long term (current) drug therapy; Z79.4 Long term (current) use of insulin; Z79.82 Long term (current) use of aspirin; Z79.84 Long term (current) use of oral hypoglycemic drugs; Z98.890 Other specified postprocedural states; Z90.89 Acquired absence of other organs; Z87.891 Personal history of nicotine dependence; X58.XXXA Exposure to other specified factors, initial encounter; Y93.89 Activity, other specified; Y92.89 Other specified places as the place of occurrence of the external cause; Y99.8 Other external cause status

== ENCOUNTER 2025-01-18 12:21 | Inpatient (IN) | payer OTHER ==
[~2025-01-18] VITALS: Ht 160 cm; Wt 59.6 kg
[2025-01-18 12:30] VITALS: BP 117/59
[2025-01-18 15:01] LABS: BASO # 0.0 10*3/uL (0.0-0.1); BASO % 0.3 % (0.0-1.0); EOS # 0.0 10*3/uL (0.0-0.4); EOS % 0.1 % (1.0-4.0); MEAN CELL VOLUME 86.8 fl (81.0-99.0); MEAN CORPUSCULAR HGB 27.3 pg (27.0-31.0); MEAN PLATELET VOLUME 7.9 fl (9.6-12.3); MONO # 0.8 10*3/uL (0.1-1.0); MONO % 11.5 % (3.0-9.0); NEUT # 5.0 10*3/uL (2.3-7.9); NEUT % 69.7 % (47.0-73.0); NUCLEATED RED BLOOD CELL 0.0 % (0.0-0.0); NUCLEATED RED BLOOD CELL 0.0 10*3/uL (0.0-0.0); PLATELET COUNT AUTOMATED 692 10*3/uL (130-400); RED CELL DISTRI WIDTH 13.1 % (0-14.5)
[2025-01-18 15:32] LABS: BUN 7 mg/dl (9-23)
[2025-01-18] MEDS ORDERED: GADOTERATE MEGLUMINE 7.5 MMOL/15 ML VIAL IV ONE (15:59)
[2025-01-18] MEDS ORDERED: POTASSIUM CHLORIDE 20 MEQ TAB PO ONE (16:00)
[2025-01-18] MEDS ORDERED: MAGNESIUM SULFATE 100 ML IV ONE (16:00)
[2025-01-18] MEDS ORDERED: LORAZEPAM1 MG PO (17:20)
[2025-01-18] MEDS ORDERED: SERTRALINE HYDR25 MG PO (17:21)
[2025-01-18] MEDS ORDERED: AMLODIPINE BESYL5 MG PO (17:22)
[2025-01-18] MEDS ORDERED: ZETIA10 MG PO (17:22)
[2025-01-18] MEDS ORDERED: FLUTICASONE-SA1 EAC4 INH (17:23)
[2025-01-18] MEDS ORDERED: VOLTAREN ARTHRI20 GM T (17:24)
[2025-01-18] MEDS ORDERED: VAZALORE81 MG PO (17:24)
[2025-01-18] MEDS ORDERED: LANTUS SOL100 UNIT/1 SC (17:26)
[2025-01-18 17:27] VITALS: BP 121/75
[2025-01-18] MEDS ORDERED: BIOTENE DRY M1000 ML MM (17:44)
[2025-01-18] MEDS ORDERED: LORazepam 1 MG TAB PO PRN (18:25)
[2025-01-18] MEDS ORDERED: ALBUTEROL 8 GM INHALER INH PRN (18:25)
[2025-01-18] MEDS ORDERED: Aloe Vera/Carboxymethylcellu 44.3 ML CANS PO PRN (18:30)
[2025-01-18] MEDS ORDERED: DICLOFENAC SODIUM 100 GM TUBE T PRN (18:30)
[2025-01-18] MEDS ORDERED: BUDESONIDE 0.5 MG AMP NEB SCH (18:50)
[2025-01-18 18:53] LABS: BILIRUBIN Negative (Negative); BLOOD Negative (Negative); CLARITY Clear (Clear); COLOR Yellow (Yellow); KETONE Negative (Negative); LEUKO ESTERASE Negative (Negative); NITRITE Negative (Negative); PH 5.5 (4.5-8.0); SPECIFIC GRAVITY 1.015 (1.001-1.030); UROBILINOGEN 0.2 E.U./dl (0.0-1.0)
[2025-01-18 18:59] LABS: WBC 0-2 wbc/hpf (0-5)
[2025-01-18] MEDS ORDERED: HYDROmorphONE Hydrochloride 0.5 MG/0.5 ML SYRINGE IV PRN (19:10)
[2025-01-18 20:00] VITALS: BP 96/58
[2025-01-18] MEDS ORDERED: VITAMIN E 400 IU CAP PO SCH (22:00)
[2025-01-18] MEDS ORDERED: Trihexyphenidyl Hydrochlorid 2 MG TAB PO SCH (22:00)
[2025-01-18] MEDS ORDERED: Loratadine/Pseudoephedrine S 1 TAB TAB PO SCH (22:00)
[2025-01-19] VITALS (11 sets, daily range): BP systolic 90–126; BP diastolic 60–94
[2025-01-19 06:58] LABS: BASO # 0.0 10*3/uL (0.0-0.1); BASO % 0.3 % (0.0-1.0); EOS # 0.0 10*3/uL (0.0-0.4); EOS % 0.3 % (1.0-4.0); MEAN CELL VOLUME 86.6 fl (81.0-99.0); MEAN CORPUSCULAR HGB 27.7 pg (27.0-31.0); MEAN PLATELET VOLUME 8.1 fl (9.6-12.3); MONO # 0.9 10*3/uL (0.1-1.0); MONO % 13.8 % (3.0-9.0); NEUT # 3.6 10*3/uL (2.3-7.9); NEUT % 57.5 % (47.0-73.0); NUCLEATED RED BLOOD CELL 0.0 % (0.0-0.0); NUCLEATED RED BLOOD CELL 0.0 10*3/uL (0.0-0.0); PLATELET COUNT AUTOMATED 631 10*3/uL (130-400); RED CELL DISTRI WIDTH 13.2 % (0-14.5)
[2025-01-19 07:27] LABS: BUN < 5 mg/dl (9-23)
[2025-01-19] MEDS ORDERED: ATORVASTATIN CALCIUM 10 MG TAB PO SCH (10:00)
[2025-01-19] MEDS ORDERED: Insulin Glargine, Recombinan 1 UNIT/0.01 ML SC SCH (10:00)
[2025-01-19] MEDS ORDERED: EZETIMIBE 10 MG TAB PO SCH (10:00)
[2025-01-19] MEDS ORDERED: Fluticasone Propionate/Salmeterol 250/50 diskus INH SCH (10:00)
[2025-01-19] MEDS ORDERED: Paliperidone 6 MG TER PO SCH (10:00)
[2025-01-19] MEDS ORDERED: ASPIRIN, CHEWABLE 81 MG TAB PO SCH ×2 (10:00)
[2025-01-19] MEDS ORDERED: Lactated Ringer's Solution 1,000 ML IV ONE (11:28)
[2025-01-19] MEDS ORDERED: PROPOFOL 200 MG/20 ML VIAL IV ONE (14:34)
[2025-01-19] MEDS ORDERED: SEVOFLURANE 250 ML BOT INH ONE (14:34)
[2025-01-19] MEDS ORDERED: Dexamethasone Sodium Phospha 4 MG/ML VIAL IV ONE (14:34)
[2025-01-19] MEDS ORDERED: Ondansetron Hydrochloride 4 MG/2 ML VIAL IV ONE (14:34)
[2025-01-19] MEDS ORDERED: Lidocaine Hydrochloride 5 ML VIAL IV ONE (14:34)
[2025-01-19] MEDS ORDERED: Midazolam Hydrochloride 2 MG/2 ML VIAL IV ONE (14:34)
[2025-01-19 16:44] LABS: BF LYMPHOCYTES 3 %; BF MONOCYTES 1 %; BF NEUTROPHILS 96 %
[2025-01-20] VITALS: BP 100/70
[2025-01-20 08:00] VITALS: BP 126/86
[2025-01-20 10:00] VITALS: BP 125/88
[2025-01-20 11:07] LABS: ACID FAST SPEC PROCESSING Tissue Grinding (.)
[2025-01-20 12:00] VITALS: BP 127/81
[2025-01-20 16:00] VITALS: BP 109/66
[2025-01-20 20:00] VITALS: BP 114/89
[2025-01-21] VITALS: BP 102/66
[2025-01-21 07:07] LABS: BASO # 0.0 10*3/uL (0.0-0.1); BASO % 0.5 % (0.0-1.0); EOS # 0.1 10*3/uL (0.0-0.4); EOS % 0.7 % (1.0-4.0); MEAN CELL VOLUME 87.8 fl (81.0-99.0); MEAN CORPUSCULAR HGB 27.3 pg (27.0-31.0); MEAN PLATELET VOLUME 8.4 fl (9.6-12.3); MONO # 0.8 10*3/uL (0.1-1.0); MONO % 10.9 % (3.0-9.0); NEUT # 5.1 10*3/uL (2.3-7.9); NEUT % 66.7 % (47.0-73.0); NUCLEATED RED BLOOD CELL 0.0 % (0.0-0.0); NUCLEATED RED BLOOD CELL 0.0 10*3/uL (0.0-0.0); PLATELET COUNT AUTOMATED 567 10*3/uL (130-400); RED CELL DISTRI WIDTH 13.6 % (0-14.5)
[2025-01-21 07:32] LABS: BUN 10 mg/dl (9-23); SGPT/ALT 22 U/L (5-49)
[2025-01-21 08:00] VITALS: BP 126/73
[2025-01-21 12:00] VITALS: BP 110/80
[2025-01-21 16:00] VITALS: BP 120/82
[2025-01-21 20:00] VITALS: BP 128/79
[2025-01-22] VITALS: BP 135/90
[2025-01-22 08:00] VITALS: BP 112/72
[2025-01-22 12:00] VITALS: BP 114/67
[2025-01-22 16:00] VITALS: BP 98/65
[2025-01-22] MEDS ORDERED: FOAM BANDAGE 1 EACH BANDAGE T ONE (16:14)
[2025-01-22 20:00] VITALS: BP 128/71
[2025-01-23] VITALS: BP 118/77
[2025-01-23 06:41] LABS: BASO # 0.1 10*3/uL (0.0-0.1); BASO % 0.6 % (0.0-1.0); EOS # 0.0 10*3/uL (0.0-0.4); EOS % 0.5 % (1.0-4.0); MEAN CELL VOLUME 86.4 fl (81.0-99.0); MEAN CORPUSCULAR HGB 26.6 pg (27.0-31.0); MEAN PLATELET VOLUME 8.7 fl (9.6-12.3); MONO # 0.9 10*3/uL (0.1-1.0); MONO % 10.7 % (3.0-9.0); NEUT # 6.5 10*3/uL (2.3-7.9); NEUT % 74.6 % (47.0-73.0); NUCLEATED RED BLOOD CELL 0.0 % (0.0-0.0); NUCLEATED RED BLOOD CELL 0.0 10*3/uL (0.0-0.0); PLATELET COUNT AUTOMATED 497 10*3/uL (130-400); RED CELL DISTRI WIDTH 13.5 % (0-14.5)
[2025-01-23 06:45] LABS: BUN 7 mg/dl (9-23); SGPT/ALT 55 U/L (5-49)
[2025-01-23 08:00] VITALS: BP 119/63
[2025-01-23 12:00] VITALS: BP 135/89
[2025-01-23 16:00] VITALS: BP 125/109
[2025-01-23 20:00] VITALS: BP 125/90
[2025-01-24] VITALS: BP 125/90
[2025-01-24 08:00] VITALS: BP 124/76
[2025-01-24 12:00] VITALS: BP 124/78
[2025-01-24] MEDS ORDERED: FOAM BANDAGE 5X5 T ONE (14:02)
[2025-01-24 16:00] VITALS: BP 111/67
[2025-01-24 20:00] VITALS: BP 120/62
[2025-01-25] VITALS: BP 115/79
[2025-01-25 06:08] LABS: BASO # 0.1 10*3/uL (0.0-0.1); BASO % 0.9 % (0.0-1.0); EOS # 0.1 10*3/uL (0.0-0.4); EOS % 1.5 % (1.0-4.0); MEAN CELL VOLUME 87.8 fl (81.0-99.0); MEAN CORPUSCULAR HGB 26.5 pg (27.0-31.0); MEAN PLATELET VOLUME 8.9 fl (9.6-12.3); MONO # 1.3 10*3/uL (0.1-1.0); MONO % 15.8 % (3.0-9.0); NEUT # 5.6 10*3/uL (2.3-7.9); NEUT % 69.1 % (47.0-73.0); NUCLEATED RED BLOOD CELL 0.0 % (0.0-0.0); NUCLEATED RED BLOOD CELL 0.0 10*3/uL (0.0-0.0); PLATELET COUNT AUTOMATED 448 10*3/uL (130-400); RED CELL DISTRI WIDTH 13.9 % (0-14.5)
[2025-01-25 06:29] LABS: BUN 11 mg/dl (9-23)
[2025-01-25 08:00] VITALS: BP 127/80
[2025-01-25 12:00] VITALS: BP 122/72
[2025-01-25] MEDS ORDERED: DOXYCYCLINE HY100 M3 PO (12:55)
[2025-01-25] MEDS ORDERED: AMOX-CLAV 875-1 EACH PO (12:55)
== END 2025-01-25 15:21 | DRG 629 ==
LOC: ED 12:21 → EDHOLD 15:33 → 5E 15:33
PROVIDERS: Nurse Practitioner Family; Orthopaedic Surgery; ADMIT Internal Medicine; ATTEND Internal Medicine
PROC: 0QBG0ZX Excision of Right Tibia, Open Approach, Diagnostic (ICD-10-PCS; principal; 2025-01-19)
PROC: 0Y9F3ZX Drainage of Right Knee Region, Percutaneous Approach, Diagnostic (ICD-10-PCS; 2025-01-19)
DX: E11.69 Type 2 diabetes mellitus with other specified complication (principal); E87.1 Hypo-osmolality and hyponatremia; L02.415 Cutaneous abscess of right lower limb; M86.261 Subacute osteomyelitis, right tibia and fibula; E87.6 Hypokalemia; E83.42 Hypomagnesemia; F31.9 Bipolar disorder, unspecified; F41.9 Anxiety disorder, unspecified; E78.5 Hyperlipidemia, unspecified; I10 Essential (primary) hypertension; J44.89 Other specified chronic obstructive pulmonary disease; M17.0 Bilateral primary osteoarthritis of knee; E53.8 Deficiency of other specified B group vitamins; F60.3 Borderline personality disorder; J44.9 Chronic obstructive pulmonary disease, unspecified; S80.12XA Contusion of left lower leg, initial encounter; Z87.891 Personal history of nicotine dependence; Z82.49 Family history of ischemic heart disease and other diseases of the circulatory system; Z82.5 Family history of asthma and other chronic lower respiratory diseases; Z83.3 Family history of diabetes mellitus; Z80.8 Family history of malignant neoplasm of other organs or systems; Z88.8 Allergy status to other drugs, medicaments and biological substances; Z79.899 Other long term (current) drug therapy; Z79.01 Long term (current) use of anticoagulants; Z79.2 Long term (current) use of antibiotics; Z79.82 Long term (current) use of aspirin; Z79.4 Long term (current) use of insulin; X58.XXXA Exposure to other specified factors, initial encounter; Y93.89 Activity, other specified; Y92.89 Other specified places as the place of occurrence of the external cause; Y99.8 Other external cause status

== ENCOUNTER 2025-02-03 10:37 | Emergency (ER) | payer OTHER ==
[~2025-02-03] VITALS: Wt 72.6 kg
[~2025-02-03 10:37] MED LIST changes: +AMLODIPINE BESYL5 MG PO; +AMOX-CLAV 875-1 EACH PO; +BIOTENE DRY M1000 ML MM; +DOXYCYCLINE HY100 M3 PO; +FLUTICASONE-SA1 EAC4 INH; +LANTUS SOL100 UNIT/1 SC; +SERTRALINE HYDR25 MG PO; +VAZALORE81 MG PO; +VOLTAREN ARTHRI20 GM T; +ZETIA10 MG PO
[2025-02-03 11:18] LABS: MEAN CELL VOLUME 87.0 fl (81.0-99.0); MEAN CORPUSCULAR HGB 25.4 pg (27.0-31.0); MEAN PLATELET VOLUME 9.3 fl (9.6-12.3); NUCLEATED RED BLOOD CELL 0.0 10*3/uL (0.0-0.0); NUCLEATED RED BLOOD CELL 0.2 % (0.0-0.0); PLATELET COUNT AUTOMATED 636 10*3/uL (130-400); RED CELL DISTRI WIDTH 15.0 % (0-14.5)
[2025-02-03 11:22] LABS: MANUAL DIFF REFLEX YES
[2025-02-03 11:40] LABS: BUN 21 mg/dl (9-23); SGPT/ALT 15 U/L (5-49)
[2025-02-03] MEDS ORDERED: DIGOXIN 500 MCG/2 ML AMP IV ONE (11:45)
[2025-02-03 11:46] LABS: PLATELET SUFFICIENCY HIGH (NORMAL)
[2025-02-03] MEDS ORDERED: SODIUM CHLORIDE 0.9% 100 ML BAG IV ONE (11:55)
[2025-02-03] MEDS ORDERED: IOHEXOL 350 MG/ML 100 ML VIAL IV ONE ×2 (11:55→12:21)
[2025-02-03] MEDS ORDERED: SODIUM CHLORIDE 0.9% 100 ML IV ONE (12:22)
[2025-02-03 13:29] VITALS: BP 113/74
== END 2025-02-03 14:03 | disposition short-term general hospital (02) ==
LOC: ED 10:37
PROVIDERS: Student in an Organized Health Care Education/Training Program
DX: I11.0 Hypertensive heart disease with heart failure (principal); I50.9 Heart failure, unspecified; J96.00 Acute respiratory failure, unspecified whether with hypoxia or hypercapnia; I48.20 Chronic atrial fibrillation, unspecified; E87.20 Acidosis, unspecified; Z88.8 Allergy status to other drugs, medicaments and biological substances; Z79.899 Other long term (current) drug therapy; Z79.82 Long term (current) use of aspirin; Z79.4 Long term (current) use of insulin; Z79.84 Long term (current) use of oral hypoglycemic drugs; Z98.890 Other specified postprocedural states; Z90.89 Acquired absence of other organs; Z87.891 Personal history of nicotine dependence